=== PATIENT | female | born 1985 | race American Indian/Alaskan Native ===

== ENCOUNTER 2021-04-25 14:36 | Emergency (ER) | payer SELFPAY ==
[2021-04-25 15:25] VITALS: BP 110/69
[2021-04-25 17:07] LABS: Basophils # (Auto) 0.1 K/mm3 (0.0-0.1); Basophils % (Auto) 0.8 % (0.0-1.8); Eosinophils % (Auto) 0.3 % (0.0-4.3); Hemoglobin 10.5 gm/dl (10.1-14.3); Lymphocytes # (Auto) 0.7 K/mm3 (1.2-5.4); Lymphocytes % (Auto) 10.6 % (13.4-35.0); Mean Corpuscular HGB Conc 33 % (30-34); Mean Corpuscular Volume 78 fl (79-97); Monocytes # (Auto) 0.7 K/mm3 (0.0-0.8); Monocytes % (Auto) 10.5 % (0.0-7.3); Platelet Count 134 K/mm3 (140-440); Red Blood Count 4.08 M/mm3 (3.65-5.03); Red Cell Distribution Width 16.4 % (13.2-15.2)
[2021-04-25 17:34] LABS: Alanine Aminotransferase 10 units/L (7-56); Albumin 4.5 g/dL (3.9-5); BUN/Creatinine Ratio 16; Blood Urea Nitrogen 13 mg/dL (7-17); Calcium 9.4 mg/dL (8.4-10.2); Hemolysis Index 11
== END 2021-04-25 16:45 | disposition left against medical advice (07) ==
LOC: ED 14:36
DX: R56.9 Unspecified convulsions (principal); Z53.21 Procedure and treatment not carried out due to patient leaving prior to being seen by health care provider
CPT/HCPCS: 36415; 80053; 80320; 85025; 93005; G0480

== ENCOUNTER 2021-04-26 06:09 | Emergency (ER) | payer OTHER, SELFPAY ==
--- NOTE | 2021-04-26 06:57 | Emergency Department Report ---
ED Psych HPI - General Chief Complaint: Psych Stated Complaint: MH EVAL Time Seen by Provider: 04/26/21 06:49 Source: patient, EMS Mode of arrival: Ambulatory - History of Present Illness Initial Comments: 35-year-old female, history of bipolar disorder, schizophrenia, presents to ED for mental health evaluation. EMS reports patient reported SI. When I speak to patient she states that she is having some diffuse abdominal pain that started "a few minutes ago" after arriving in the ER. Patient does report having some suicidal ideations. She states that she is feeling suicidal because she had 2 seizures yesterday. Patient reports history of seizure disorder. States she started having seizures approximately 1 year ago. Patient states she does not take any seizure medication and has never been on any medication for seizures. Patient is also not been taking any of her psychiatric medications. MD Complaint: suicidal ideation -: Last night Associated Psychiatric Symptoms: suicidal ideation Quality: constant Improves With: none Worsens With: none Context: not taking psychiatric Associated Symptoms: other (Reports diffuse abdominal pain). denies: nausea, vomiting Treatments Prior to Arrival: none If Self Harm: admits thoughts of Details of Plan: Patient has no plan - Related Data Home Medications Medication Instructions Recorded Confirmed Last Taken Albuterol Mdi (or & Nicu Only) 2 puff IH QID PRN 04/26/21 04/26/21 Unknown [ProAir HFA Inhaler] Allergies Allergy/AdvReac Type Severity Reaction Status Date / Time No Known Allergies Allergy Verified 04/29/21 08:40 ED Review of Systems ROS: Stated complaint: MH EVAL Other details as noted in HPI Comment: All other systems reviewed and negative Constitutional: denies: fever Gastrointestinal: abdominal pain. denies: nausea, vomiting, diarrhea Psychiatric: suicidal thoughts ED Past Medical Hx - Past Medical History Previous Medical History?: Yes Hx Seizures: Yes Hx Psychiatric Treatment: Yes (bipolar scizophrenia) - Surgical History Past Surgical History?: No - Social History Smoking Status: Never Smoker Substance Use Type: None - Medications Home Medications: Home Medications Medication Instructions Recorded Confirmed Last Taken Type Albuterol Mdi (or & Nicu Only) 2 puff IH QID PRN 04/26/21 04/26/21 Unknown History [ProAir HFA Inhaler] ED Physical Exam - General Limitations: Other General appearance: alert, in no apparent distress - Head Head exam: Present: atraumatic, normocephalic - Eye Eye exam: Present: normal appearance, EOMI - ENT ENT exam: Present: mucous membranes moist - Neck Neck exam: Present: normal inspection - Respiratory Respiratory exam: Present: normal lung sounds bilaterally. Absent: respiratory distress - Cardiovascular Cardiovascular Exam: Present: regular rate, normal rhythm - GI/Abdominal GI/Abdominal exam: Present: soft. Absent: distended, tenderness - Extremities Exam Extremities exam: Present: normal inspection - Neurological Exam Neurological exam: Present: alert, oriented X3 - Psychiatric Psychiatric exam: Present: suicidal ideation - Skin Skin exam: Present: warm, dry, intact, normal color ED Course Vital Signs 04/26/21 04/26/21 04/26/21 06:50 08:16 19:40 Temperature 99.2 F 98.2 F 98.9 F Pulse Rate 80 75 80 Respiratory 18 18 18 Rate Blood Pressure Blood Pressure 111/77 106/76 118/83 [Right] O2 Sat by Pulse 98 100 100 Oximetry 04/27/21 04/27/21 04/27/21 05:20 10:29 19:38 Temperature 98.5 F 99.1 F Pulse Rate 80 74 93 H Respiratory 16 18 18 Rate Blood Pressure 114/76 Blood Pressure 97/69 101/67 [Right] O2 Sat by Pulse 100 100 100 Oximetry 04/28/21 04/28/21 04/28/21 01:20 08:03 20:15 Temperature 98.1 F 97.6 F 97.6 F Pulse Rate 77 68 90 Respiratory 19 18 18 Rate Blood Pressure Blood Pressure 116/52 114/67 105/54 [Right] O2 Sat by Pulse 100 98 100 Oximetry 04/29/21 04/29/21 04/29/21 05:40 08:38 19:38 Temperature 97.9 F 96.8 F L 98.8 F Pulse Rate 89 72 92 H Respiratory 18 18 18 Rate Blood Pressure Blood Pressure 105/54 123/73 117/70 [Right] O2 Sat by Pulse 98 96 100 Oximetry 04/30/21 04/30/21 04/30/21 01:22 04:12 05:12 Temperature 98.1 F Pulse Rate 85 Respiratory 19 16 16 Rate Blood Pressure Blood Pressure 115/68 [Right] O2 Sat by Pulse 100 Oximetry 04/30/21 04/30/21 04/30/21 09:12 18:13 20:18 Temperature 97.6 F 99 F Pulse Rate 82 79 Respiratory 20 15 18 Rate Blood Pressure Blood Pressure 110/54 104/67 [Right] O2 Sat by Pulse 100 Oximetry 05/01/21 05/01/21 05/01/21 02:34 08:30 20:18 Temperature 98.2 F 97 F L 97.8 F Pulse Rate 72 84 90 Respiratory 16 18 18 Rate Blood Pressure Blood Pressure 109/64 103/63 100/63 [Right] O2 Sat by Pulse 100 100 100 Oximetry 05/02/21 05/02/21 01:52 08:16 Temperature 97.7 F 97.9 F Pulse Rate 75 88 Respiratory 16 20 Rate Blood Pressure Blood Pressure 98/66 114/73 [Right] O2 Sat by Pulse 100 99 Oximetry ED Medical Decision Making - Lab Data Result diagrams: 04/26/21 07:17 04/26/21 07:17 - Medical Decision Making 35-year-old female presents to ED with complaint of SI. Labs unremarkable. Patient is medically clear for mental health evaluation. Will dispo per psych. Critical care attestation.: If time is entered above; I have spent that time in minutes in the direct care of this critically ill patient, excluding procedure time. ED Disposition Clinical Impression: Schizophrenia Disposition: [id number]/[id number] PSY HOSP/PSY UNIT Is pt being admited?: No Condition: Stable Referrals: PRIMARY MD PREETI [Primary Care Provider] - 3-5 Days
[2021-04-26 07:39] LABS: Basophils % (Auto) 0.9 % (0.0-1.8); Eosinophils # (Auto) 0.1 K/mm3 (0.0-0.4); Hematocrit 31.4 % (30.3-42.9); Hemoglobin 10.3 gm/dl (10.1-14.3); Lymphocytes # (Auto) 1.5 K/mm3 (1.2-5.4); Lymphocytes % (Auto) 26.6 % (13.4-35.0); Mean Corpuscular HGB Conc 33 % (30-34); Mean Corpuscular Volume 78 fl (79-97); Monocytes # (Auto) 0.8 K/mm3 (0.0-0.8); Monocytes % (Auto) 13.9 % (0.0-7.3); Platelet Count 139 K/mm3 (140-440); Red Blood Count 4.03 M/mm3 (3.65-5.03); Red Cell Distribution Width 16.2 % (13.2-15.2)
[2021-04-26 07:58] LABS: BUN/Creatinine Ratio 16; Blood Urea Nitrogen 13 mg/dL (7-17); Calcium 9.3 mg/dL (8.4-10.2); Hemolysis Index 2
[2021-04-26] MEDS ORDERED: ACETAMINOPHEN 500 MG TAB PO ONE (08:44)
--- NOTE | 2021-04-26 12:19 | Consultation ---
History of Present Illness - Reason for Consult Consult date: 04/26/21 Reason for consult: psychosis - History of Present Psychiatric Illness Per ED Note: 35-year-old female, history of bipolar disorder, schizophrenia, presents to ED for mental health evaluation. EMS reports patient reported SI. When I speak to patient she states that she is having some diffuse abdominal pain that started "a few minutes ago" after arriving in the ER. Patient does report having some suicidal ideations. She states that she is feeling suicidal because she had 2 seizures yesterday. Patient reports history of seizure disorder. States she started having seizures approximately 1 year ago. Patient states she does not take any seizure medication and has never been on any medication for seizures. Patient is also not been taking any of her psychiatric medications. The patient was seen today, she states she called 911 because she was having seizures. She also endorses SI. The patient also states she is hearing voices telling her to hurt herself. She says she has a history of schizophrenia but could not remember any medications. She denies having a plan. The patient also denies any illicit drug use, alcohol or nicotine. The patient is asking about seizure medication and states she needs to be on some meds for them. PAST PSYCHIATRIC HISTORY: Diagnoses: Depression Suicide attempts or Self-harm behavior: Yes Prior psychiatric hospitalizations: Yes Substance Abuse history: Denies Previous psychiatric medications tried: Denies Outpatient treatment: Denies PAST MEDICAL HISTORY: None reported Family Psychiatric History: None reported or documented SOCIAL HISTORY Marital Status: Single Living Arrangements: with father Employment Status: Unemployed Access to guns/weapons: States Education: high school History of Abuse: Denies Legal History: Denies MENTAL STATUS EXAMINATION General Appearance and Behavior: Age appropriate, good hygiene, fair eye contact, cooperative Cooperation: withdrawn Psychomotor Behavior: Psychomotor normal Mood: "depressed" Affect and affective range: restricted Thought Process: Speech: Normal tone and pace Thought Content Suicidal Ideation: Yes Homicidal Ideation: Denies Hallucinations: Auditory Delusions: None elicited Impulse Control: Impaired Insight and Judgment: Impaired insight and judgment Memory: Impaired Attention: Divided attention impaired Orientation: A/o x 3 Assessment and Plan (1)Schizophrenia Treatment Plan 1013 Start Prozac 10mg po daily Start Abilify 5mg po daily Trazodone 50mg po qhs Sitter: Defer to primary Medical: Per primary Disposition: Recommend acute psychiatric treatment Sitter to provide resources for outpatient psych Will follow. Thank you for this consult Case staffed with Dr. Gomez. Medications and Allergies Allergies Allergy/AdvReac Type Severity Reaction Status Date / Time No Known Allergies Allergy Unverified 04/26/21 08:44 Home Medications Medication Instructions Recorded Confirmed Last Taken Type Albuterol Mdi (or & Nicu Only) 2 puff IH QID PRN 04/26/21 04/26/21 Unknown History [ProAir HFA Inhaler] Active Meds: Active Medications Albuterol (Albuterol 8.5 Gm Mdi Inhalation) 2 puff IH QID PRN PRN Reason: Shortness Of Breath Mental Status Exam - Vital signs Last Vital Signs Temp 98.2 F 04/26/21 08:16 Pulse 75 04/26/21 08:16 Resp 18 04/26/21 08:16 BP 106/76 04/26/21 08:16 Pulse Ox 100 04/26/21 08:16 Results Result Diagrams: 04/26/21 07:17 04/26/21 07:17 Abnormal lab results 04/26/21 04/26/21 04/26/21 Range/Units 07:17 07:17 07:17 MCV 78 L (79-97) fl MCH 26 L (28-32) pg RDW 16.2 H (13.2-15.2) % Plt Count 139 L (140-440) K/mm3 [place] % (Auto) 13.9 H (0.0-7.3) % Glucose (65-100) mg/dL Salicylates < 0.3 L (2.8-20.0) mg/dL Acetaminophen 5.0 L (10.0-30.0) ug/mL 04/26/21 Range/Units 07:17 MCV (79-97) fl MCH (28-32) pg RDW (13.2-15.2) % Plt Count (140-440) K/mm3 [place] % (Auto) (0.0-7.3) % Glucose 101 H (65-100) mg/dL Salicylates (2.8-20.0) mg/dL Acetaminophen (10.0-30.0) ug/mL All other labs normal.
[2021-04-26] MEDS ORDERED: LORazepam 1 MG TAB PO ONE (12:35)
[2021-04-26 12:38] LABS: Bilirubin,Urine NEG (Negative); Blood,Urine SM (Negative); Color,Urine Yellow (Yellow); Mucus,Urine FEW /HPF; Protein,Urine <15 mg/dL mg/dL (Negative); Urobilinogen,Urine < 2.0 mg/dL (<2.0)
[2021-04-26 12:45] LABS: Amphetamine Screen,Urine Negative; Benzodiazepines Screen,Urine Negative; Cannabinoid Screen,Urine Negative; Cocaine Screen,Urine Negative; Methadone Screen,Urine Negative; Opiate Screen,Urine Negative
[2021-04-26] MEDS: FLUoxetine 10 MG TAB PO SCH (13:04)
[2021-04-26] MEDS: ARIPiprazole 5 MG TAB PO SCH (13:04)
[2021-04-26] MEDS ORDERED: FAMOTIDINE 20 MG TAB PO ONE (21:31)
[2021-04-26] MEDS: traZODone 50 MG TAB PO SCH (21:49)
--- NOTE | 2021-04-27 10:36 | Progress Note ---
Subjective - Reason for Consult Consult date: 04/27/21 Reason for consult: psychosis - Chief Complaint Chief complaint: The patient was seen today. She says she is "not good." The patient endorses SI with a plan to use a knife. She says she is seeing ghosts. SOCIAL HISTORY Marital Status: Single Living Arrangements: with father Employment Status: Unemployed Access to guns/weapons: States Education: high school History of Abuse: Denies Legal History: Denies MENTAL STATUS EXAMINATION General Appearance and Behavior: Age appropriate, good hygiene, fair eye contact, cooperative Cooperation: withdrawn Psychomotor Behavior: Psychomotor normal Mood: "depressed" Affect and affective range: restricted Thought Process: Speech: Normal tone and pace Thought Content Suicidal Ideation: Yes Homicidal Ideation: Denies Hallucinations: Auditory Delusions: None elicited Impulse Control: Impaired Insight and Judgment: Impaired insight and judgment Memory: Impaired Attention: Divided attention impaired Orientation: A/o x 3 Assessment and Plan (1)Schizophrenia Treatment Plan 1013 Increase Prozac 20mg po daily Increase Abilify 10mg po daily Trazodone 50mg po qhs Sitter: Defer to primary Medical: Per primary Disposition: Recommend acute psychiatric treatment Sitter to provide resources for outpatient psych Will follow. Thank you for this consult Case staffed with Dr. Gomez. Mental Status Exam - Vital signs Last Vital Signs Temp 98.5 F 04/27/21 05:20 Pulse 74 04/27/21 10:29 Resp 18 04/27/21 10:29 BP 101/67 04/27/21 10:29 Pulse Ox 100 04/27/21 10:29
[2021-04-27] MEDS: ARIPiprazole 5 MG TAB PO SCH (11:55)
[2021-04-27] MEDS: FLUoxetine 10 MG TAB PO SCH (11:56)
--- NOTE | 2021-04-27 12:13 | Event Note ---
Date: 04/27/21 Patient is calm and cooperative. She is continue to endorse some suicidal thoughts. Patient was seen by our mental health assessment team and is continue to be a candidate for 1013. Please see their note below. Psychiatry Progress Note Patient Name: GABRIELA LANGFORD Date of : 85 Patient Status: Emergency Emergency Provider: AHMET CALI Date: 04/27/21 10:35 Initialization Date: 04/27/21 10:35 Subjective - Reason for Consult Consult date: 04/27/21 Reason for consult: psychosis - Chief Complaint Chief complaint: The patient was seen today. She says she is "not good." The patient endorses SI with a plan to use a knife. She says she is seeing ghosts. SOCIAL HISTORY Marital Status: Single Living Arrangements: with father Employment Status: Unemployed Access to guns/weapons: States Education: high school History of Abuse: Denies Legal History: Denies MENTAL STATUS EXAMINATION General Appearance and Behavior: Age appropriate, good hygiene, fair eye contact, cooperative Cooperation: withdrawn Psychomotor Behavior: Psychomotor normal Mood: "depressed" Affect and affective range: restricted Thought Process: Speech: Normal tone and pace Thought Content Suicidal Ideation: Yes Homicidal Ideation: Denies Hallucinations: Auditory Delusions: None elicited Impulse Control: Impaired Insight and Judgment: Impaired insight and judgment Memory: Impaired Attention: Divided attention impaired Orientation: A/o x 3 Assessment and Plan (1)Schizophrenia Treatment Plan 1013 Increase Prozac 20mg po daily Increase Abilify 10mg po daily Trazodone 50mg po qhs Sitter: Defer to primary Medical: Per primary Disposition: Recommend acute psychiatric treatment Sitter to provide resources for outpatient psych Will follow. Thank you for this consult Case staffed with Dr. Gomez.
[2021-04-27] MEDS ORDERED: DEXTROSE 50% IN WATER (25GM) 50 ML SYRINGE IV ONE (12:14)
[2021-04-27] MEDS ORDERED: ONDANSETRON 4 MG ODT TAB PO ONE (20:32)
[2021-04-27] MEDS: traZODone 50 MG TAB PO SCH (22:01)
--- NOTE | 2021-04-28 10:21 | Progress Note ---
Subjective - Reason for Consult Consult date: 04/28/21 Reason for consult: MHE Requesting physician: SETH ROMERO - Chief Complaint Chief complaint: The patient was seen today. She says she is "not good." The patient endorses SI with a plan to use a knife. She says she is seeing ghosts. SOCIAL HISTORY Marital Status: Single Living Arrangements: with father Employment Status: Unemployed Access to guns/weapons: States Education: high school History of Abuse: Denies Legal History: Denies MENTAL STATUS EXAMINATION General Appearance and Behavior: Age appropriate, good hygiene, fair eye contact, cooperative Cooperation: withdrawn Psychomotor Behavior: Psychomotor normal Mood: "depressed" Affect and affective range: restricted Thought Process: Speech: Normal tone and pace Thought Content Suicidal Ideation: Yes Homicidal Ideation: Denies Hallucinations: Auditory Delusions: None elicited Impulse Control: Impaired Insight and Judgment: Impaired insight and judgment Memory: Impaired Attention: Divided attention impaired Orientation: A/o x 3 Assessment and Plan (1)Schizophrenia Treatment Plan 1013 Increase Prozac 20mg po daily Increase Abilify 10mg po daily Trazodone 50mg po qhs Sitter: Defer to primary Medical: Per primary Disposition: Recommend acute psychiatric treatment Sitter to provide resources for outpatient psych Will follow. Thank you for this consult Case staffed with Dr. Gomez. Mental Status Exam - Vital signs Last Vital Signs Temp 97.6 F 04/28/21 08:03 Pulse 68 04/28/21 08:03 Resp 18 04/28/21 08:03 BP 114/67 04/28/21 08:03 Pulse Ox 98 04/28/21 08:03
--- NOTE | 2021-04-28 10:58 | Event Note ---
Date: 04/28/21 S: Patient has no complaints. O: Vital signs stable. Patient calm and cooperative. A: Schizophrenia P: 1013; patient awaiting inpatient psychiatric placement
[2021-04-28] MEDS: FLUoxetine 20 MG CAP PO SCH (11:25)
[2021-04-28] MEDS: ARIPiprazole 10 MG TAB PO SCH (11:25)
[2021-04-28] MEDS ORDERED: DOCUSATE SODIUM 100 MG CAP PO PRN (21:35)
[2021-04-28] MEDS: traZODone 50 MG TAB PO SCH (21:49)
[2021-04-29] MEDS: ARIPiprazole 10 MG TAB PO SCH ×2 (10:03→10:07)
[2021-04-29] MEDS: FLUoxetine 20 MG CAP PO SCH ×2 (10:03→10:07)
--- NOTE | 2021-04-29 10:55 | Event Note ---
Date: 04/29/21 35-year-old female who presented with suicidal ideation with a plan. Patient was medically cleared and seen by mental health watch dial stoner/psychiatry who recommends further inpatient treatment. Vital signs reviewed and are stable. The patient refused her meds this morning. She is resting comfortably in the room. Awaiting psych facility placement.
[2021-04-29] MEDS: ALBUTEROL 8.5 GM MDI INHALATION IH PRN (13:06)
[2021-04-29] MEDS: traZODone 50 MG TAB PO SCH (22:19)
[2021-04-30] MEDS ORDERED: ONDANSETRON 4 MG/2 ML INJ ONE (03:34)
[2021-04-30] MEDS ORDERED: ACETAMINOPHEN 325 MG TAB PO ONE (04:08)
--- NOTE | 2021-04-30 09:34 | Progress Note ---
Subjective - Reason for Consult Consult date: 04/30/21 Reason for consult: MHE Requesting physician: AHMET CALI - Chief Complaint Chief complaint: Psych Progress Patient seen this AM, appears sad and withdrawn, endorses desire to go home, states she only gets angry because of people around her. Asked pt if she is still angry and she admits to been angry because of being held in hospital. Per documentation, pt still having intermittent episode of outburst behavior over weekend, still recommend inpatient Marital Status: Single Living Arrangements: with father Employment Status: Unemployed Access to guns/weapons: States Education: high school History of Abuse: Denies Legal History: Denies MENTAL STATUS EXAMINATION General Appearance and Behavior: Age appropriate, good hygiene, fair eye c ontact, cooperative Cooperation: withdrawn Psychomotor Behavior: Psychomotor normal Mood: "depressed" Affect and affective range: restricted Thought Process: Speech: Normal tone and pace Thought Content Suicidal Ideation: Yes Homicidal Ideation: Denies Hallucinations: Auditory Delusions: None elicited Impulse Control: Impaired Insight and Judgment: Impaired insight and judgment Memory: Impaired Attention: Divided attention impaired Orientation: A/o x 3 Assessment and Plan (1)Schizophrenia Treatment Plan 1013 Increase Prozac 20mg po daily Increase Abilify 10mg po daily Trazodone 50mg po qhs Sitter: Defer to primary Medical: Per primary Disposition: Recommend acute psychiatric treatment Sitter to provide resources for outpatient psych Will follow. Thank you for this consult Case staffed with Dr. Gomez. Mental Status Exam - Vital signs Last Vital Signs Temp 97.6 F 04/30/21 09:12 Pulse 82 04/30/21 09:12 Resp 20 04/30/21 09:12 BP 110/54 04/30/21 09:12 Pulse Ox 100 04/30/21 01:22
--- NOTE | 2021-04-30 10:30 | Event Note ---
Date: 04/30/21 35-year-old female who presented with suicidal ideation with a plan. Patient was medically cleared and seen by mental health route delivery manager/psychiatry who recommends further inpatient treatment. Vital signs reviewed and are stable. The patient is resting comfortably in the room. The patient's psychiatric medications have been adjusted by psychiatry. Awaiting psych facility placement.
[2021-04-30] MEDS: ARIPiprazole 10 MG TAB PO SCH (11:29)
[2021-04-30] MEDS: FLUoxetine 20 MG CAP PO SCH (11:30)
[2021-04-30] MEDS ORDERED: ACETAMINOPHEN 500 MG TAB PO ONE (16:59)
[2021-04-30] MEDS ORDERED: IBUPROFEN 400 MG TAB PO ONE (16:59)
[2021-04-30] MEDS: traZODone 50 MG TAB PO SCH (21:57)
[2021-05-01] MEDS: ALBUTEROL 8.5 GM MDI INHALATION IH PRN (04:22)
[2021-05-01] MEDS: ARIPiprazole 10 MG TAB PO SCH (10:03)
[2021-05-01] MEDS: FLUoxetine 20 MG CAP PO SCH (10:03)
[2021-05-01] MEDS ORDERED: diphenhydrAMINE 25 MG CAP PO PRN (10:52)
[2021-05-01] MEDS ORDERED: IBUPROFEN 400 MG TAB PO PRN (10:52)
[2021-05-01] MEDS ORDERED: LORazepam 2 MG/ML VIAL IM PRN (10:52)
[2021-05-01] MEDS ORDERED: ACETAMINOPHEN 325 MG TAB PO PRN (10:52)
--- NOTE | 2021-05-01 10:54 | Event Note ---
Date: 05/01/21 The patient was evaluated in the emergency department for symptoms described in the history of present illness. He/she was evaluated in the context of the global COVID-19 pandemic, which necessitated consideration that the patient might be at risk for infection with the virus that causes COVID-19. Institutional protocols and algorithms that pertain to the evaluation of patients at risk for COVID-19 are in a state of rapid change based on information released by regulatory bodies including the CDC and federal and state organizations. These policies and algorithms were followed during the patient's care in the emergency department. Please note that these policies, procedures and recommendations changed on a rapid basis. Patient resting comfortably in stretcher, and in no acute distress. medically cleared on initial ER evaluation. Laboratory studies, initial ER documentation reviewed and appreciated, nursing documentation reviewed and appreciated, awaiting psychiatric recommendations at this time. Nursing team endorses no acute events this morning. Patient did complain of mild painful dysmenorrhea, as needed analgesia has been ordered. psychiatric recommendations are reviewed and appreciated. Patient does not appear to have an immediate medical contraindication at this time that would preclude psychiatric evaluation, consultation, placement and disposition. Vital Signs 04/26/21 04/26/21 04/26/21 06:50 08:16 19:40 Temperature 99.2 F 98.2 F 98.9 F Pulse Rate 80 75 80 Respiratory 18 18 18 Rate Blood Pressure Blood Pressure 111/77 106/76 118/83 [Right] O2 Sat by Pulse 98 100 100 Oximetry 04/27/21 04/27/21 04/27/21 05:20 10:29 19:38 Temperature 98.5 F 99.1 F Pulse Rate 80 74 93 H Respiratory 16 18 18 Rate Blood Pressure 114/76 Blood Pressure 97/69 101/67 [Right] O2 Sat by Pulse 100 100 100 Oximetry 04/28/21 04/28/21 04/28/21 01:20 08:03 20:15 Temperature 98.1 F 97.6 F 97.6 F Pulse Rate 77 68 90 Respiratory 19 18 18 Rate Blood Pressure Blood Pressure 116/52 114/67 105/54 [Right] O2 Sat by Pulse 100 98 100 Oximetry 04/29/21 04/29/21 04/29/21 05:40 08:38 19:38 Temperature 97.9 F 96.8 F L 98.8 F Pulse Rate 89 72 92 H Respiratory 18 18 18 Rate Blood Pressure Blood Pressure 105/54 123/73 117/70 [Right] O2 Sat by Pulse 98 96 100 Oximetry 04/30/21 04/30/21 04/30/21 01:22 04:12 05:12 Temperature 98.1 F Pulse Rate 85 Respiratory 19 16 16 Rate Blood Pressure Blood Pressure 115/68 [Right] O2 Sat by Pulse 100 Oximetry 04/30/21 04/30/21 04/30/21 09:12 18:13 20:18 Temperature 97.6 F 99 F Pulse Rate 82 79 Respiratory 20 15 18 Rate Blood Pressure Blood Pressure 110/54 104/67 [Right] O2 Sat by Pulse 100 Oximetry 05/01/21 05/01/21 02:34 08:30 Temperature 98.2 F 97 F L Pulse Rate 72 84 Respiratory 16 18 Rate Blood Pressure Blood Pressure 109/64 103/63 [Right] O2 Sat by Pulse 100 100 Oximetry Lab Results 04/26/21 04/26/21 04/26/21 Range/Units 07:17 07:17 07:17 WBC 5.7 (4.5-11.0) K/mm3 RBC 4.03 (3.65-5.03) M/mm3 Hgb 10.3 (10.1-14.3) gm/dl Hct 31.4 (30.3-42.9) % MCV 78 L (79-97) fl MCH 26 L (28-32) pg MCHC 33 (30-34) % RDW 16.2 H (13.2-15.2) % Plt Count 139 L (140-440) K/mm3 Lymph % (Auto) 26.6 (13.4-35.0) % [place] % (Auto) 13.9 H (0.0-7.3) % Eos % (Auto) 1.0 (0.0-4.3) % Baso % (Auto) 0.9 (0.0-1.8) % Lymph # (Auto) 1.5 (1.2-5.4) K/mm3 [place] # (Auto) 0.8 (0.0-0.8) K/mm3 Eos # (Auto) 0.1 (0.0-0.4) K/mm3 Baso # (Auto) 0.0 (0.0-0.1) K/mm3 Seg Neutrophils % 57.6 (40.0-70.0) % Seg Neutrophils # 3.3 (1.8-7.7) K/mm3 Sodium (137-145) mmol/L Potassium (3.6-5.0) mmol/L Chloride (98-107) mmol/L Carbon Dioxide (22-30) mmol/L Anion Gap mmol/L BUN (7-17) mg/dL Creatinine (0.6-1.2) mg/dL Estimated GFR ml/min BUN/Creatinine Ratio % Glucose (65-100) mg/dL Calcium (8.4-10.2) mg/dL Lipase (13-60) units/L HCG, Qual (Negative) Urine Color (Yellow) Urine Turbidity (Clear) Urine pH (5.0-7.0) Ur Specific [place] (1.003-1.030) Urine Protein (Negative) mg/dL Urine Glucose (UA) (Negative) mg/dL Urine Ketones (Negative) mg/dL Urine Blood (Negative) Urine Nitrite (Negative) Urine Bilirubin (Negative) Urine Urobilinogen (<2.0) mg/dL Ur Leukocyte Esterase (Negative) Urine WBC (Auto) (0.0-6.0) /HPF Urine RBC (Auto) (0.0-6.0) /HPF U Epithel Cells (Auto) (0-13.0) /HPF Urine Mucus /HPF Salicylates < 0.3 L (2.8-20.0) mg/dL Urine Opiates Screen Urine Methadone Screen Acetaminophen 5.0 L (10.0-30.0) ug/mL Ur Barbiturates Screen Ur Phencyclidine Scrn Ur Amphetamines Screen U Benzodiazepines Scrn Urine Cocaine Screen U Marijuana (THC) Screen Drugs of Abuse Note Plasma/Serum Alcohol (0-0.07) % Coronavirus (PCR) (Negative) 04/26/21 04/26/21 04/26/21 Range/Units 07:17 07:17 07:17 WBC (4.5-11.0) K/mm3 RBC (3.65-5.03) M/mm3 Hgb (10.1-14.3) gm/dl Hct (30.3-42.9) % MCV (79-97) fl MCH (28-32) pg MCHC (30-34) % RDW (13.2-15.2) % Plt Count (140-440) K/mm3 Lymph % (Auto) (13.4-35.0) % [place] % (Auto) (0.0-7.3) % Eos % (Auto) (0.0-4.3) % Baso % (Auto) (0.0-1.8) % Lymph # (Auto) (1.2-5.4) K/mm3 [place] # (Auto) (0.0-0.8) K/mm3 Eos # (Auto) (0.0-0.4) K/mm3 Baso # (Auto) (0.0-0.1) K/mm3 Seg Neutrophils % (40.0-70.0) % Seg Neutrophils # (1.8-7.7) K/mm3 Sodium 138 (137-145) mmol/L Potassium 4.1 (3.6-5.0) mmol/L Chloride 105.0 (98-107) mmol/L Carbon Dioxide 25 (22-30) mmol/L Anion Gap 12 mmol/L BUN 13 (7-17) mg/dL Creatinine 0.8 (0.6-1.2) mg/dL Estimated GFR > 60 ml/min BUN/Creatinine Ratio 16 % Glucose 101 H (65-100) mg/dL Calcium 9.3 (8.4-10.2) mg/dL Lipase 30 (13-60) units/L HCG, Qual Negative (Negative) Urine Color (Yellow) Urine Turbidity (Clear) Urine pH (5.0-7.0) Ur Specific [place] (1.003-1.030) Urine Protein (Negative) mg/dL Urine Glucose (UA) (Negative) mg/dL Urine Ketones (Negative) mg/dL Urine Blood (Negative) Urine Nitrite (Negative) Urine Bilirubin (Negative) Urine Urobilinogen (<2.0) mg/dL Ur Leukocyte Esterase (Negative) Urine WBC (Auto) (0.0-6.0) /HPF Urine RBC (Auto) (0.0-6.0) /HPF U Epithel Cells (Auto) (0-13.0) /HPF Urine Mucus /HPF Salicylates (2.8-20.0) mg/dL Urine Opiates Screen Urine Methadone Screen Acetaminophen (10.0-30.0) ug/mL Ur Barbiturates Screen Ur Phencyclidine Scrn Ur Amphetamines Screen U Benzodiazepines Scrn Urine Cocaine Screen U Marijuana (THC) Screen Drugs of Abuse Note Plasma/Serum Alcohol < 0.01 (0-0.07) % Coronavirus (PCR) (Negative) 04/26/21 04/26/21 04/26/21 Range/Units Unknown Unknown Unknown WBC (4.5-11.0) K/mm3 RBC (3.65-5.03) M/mm3 Hgb (10.1-14.3) gm/dl Hct (30.3-42.9) % MCV (79-97) fl MCH (28-32) pg MCHC (30-34) % RDW (13.2-15.2) % Plt Count (140-440) K/mm3 Lymph % (Auto) (13.4-35.0) % [place] % (Auto) (0.0-7.3) % Eos % (Auto) (0.0-4.3) % Baso % (Auto) (0.0-1.8) % Lymph # (Auto) (1.2-5.4) K/mm3 [place] # (Auto) (0.0-0.8) K/mm3 Eos # (Auto) (0.0-0.4) K/mm3 Baso # (Auto) (0.0-0.1) K/mm3 Seg Neutrophils % (40.0-70.0) % Seg Neutrophils # (1.8-7.7) K/mm3 Sodium (137-145) mmol/L Potassium (3.6-5.0) mmol/L Chloride (98-107) mmol/L Carbon Dioxide (22-30) mmol/L Anion Gap mmol/L BUN (7-17) mg/dL Creatinine (0.6-1.2) mg/dL Estimated GFR ml/min BUN/Creatinine Ratio % Glucose (65-100) mg/dL Calcium (8.4-10.2) mg/dL Lipase (13-60) units/L HCG, Qual (Negative) Urine Color Yellow (Yellow) Urine Turbidity Clear (Clear) Urine pH 7.0 (5.0-7.0) Ur Specific [place] 1.014 (1.003-1.030) Urine Protein <15 mg/dl (Negative) mg/dL Urine Glucose (UA) Neg (Negative) mg/dL Urine Ketones Neg (Negative) mg/dL Urine Blood Sm (Negative) Urine Nitrite Neg (Negative) Urine Bilirubin Neg (Negative) Urine Urobilinogen < 2.0 (<2.0) mg/dL Ur Leukocyte Esterase Sm (Negative) Urine WBC (Auto) 2.0 (0.0-6.0) /HPF Urine RBC (Auto) 1.0 (0.0-6.0) /HPF U Epithel Cells (Auto) 6.0 (0-13.0) /HPF Urine Mucus Few /HPF Salicylates (2.8-20.0) mg/dL Urine Opiates Screen Negative Urine Methadone Screen Negative Acetaminophen (10.0-30.0) ug/mL Ur Barbiturates Screen Negative Ur Phencyclidine Scrn Negative Ur Amphetamines Screen Negative U Benzodiazepines Scrn Negative Urine Cocaine Screen Negative U Marijuana (THC) Screen Negative Drugs of Abuse Note Disclamer Plasma/Serum Alcohol (0-0.07) % Coronavirus (PCR) Negative (Negative)
[2021-05-01] MEDS: traZODone 50 MG TAB PO SCH (22:21)
[2021-05-02 08:17] VITALS: BP 114/73
[2021-05-02] MEDS: ARIPiprazole 10 MG TAB PO SCH (09:41)
[2021-05-02] MEDS: FLUoxetine 20 MG CAP PO SCH (09:41)
--- NOTE | 2021-05-02 11:20 | Event Note ---
Date: 05/02/21 Nursing team reports no events overnight. Vital signs are unremarkable, psychiatric recommendations reviewed and appreciated. This patient remains medically suitable for psychiatric transfer and placement at this time. Apparently she is going to be placed at [facility]. Patient resting comfortably in stretcher, and in no acute distress. Vital Signs 04/26/21 04/26/21 04/26/21 06:50 08:16 19:40 Temperature 99.2 F 98.2 F 98.9 F Pulse Rate 80 75 80 Respiratory 18 18 18 Rate Blood Pressure Blood Pressure 111/77 106/76 118/83 [Right] O2 Sat by Pulse 98 100 100 Oximetry 04/27/21 04/27/21 04/27/21 05:20 10:29 19:38 Temperature 98.5 F 99.1 F Pulse Rate 80 74 93 H Respiratory 16 18 18 Rate Blood Pressure 114/76 Blood Pressure 97/69 101/67 [Right] O2 Sat by Pulse 100 100 100 Oximetry 04/28/21 04/28/21 04/28/21 01:20 08:03 20:15 Temperature 98.1 F 97.6 F 97.6 F Pulse Rate 77 68 90 Respiratory 19 18 18 Rate Blood Pressure Blood Pressure 116/52 114/67 105/54 [Right] O2 Sat by Pulse 100 98 100 Oximetry 04/29/21 04/29/21 04/29/21 05:40 08:38 19:38 Temperature 97.9 F 96.8 F L 98.8 F Pulse Rate 89 72 92 H Respiratory 18 18 18 Rate Blood Pressure Blood Pressure 105/54 123/73 117/70 [Right] O2 Sat by Pulse 98 96 100 Oximetry 04/30/21 04/30/21 04/30/21 01:22 04:12 05:12 Temperature 98.1 F Pulse Rate 85 Respiratory 19 16 16 Rate Blood Pressure Blood Pressure 115/68 [Right] O2 Sat by Pulse 100 Oximetry 04/30/21 04/30/21 04/30/21 09:12 18:13 20:18 Temperature 97.6 F 99 F Pulse Rate 82 79 Respiratory 20 15 18 Rate Blood Pressure Blood Pressure 110/54 104/67 [Right] O2 Sat by Pulse 100 Oximetry 05/01/21 05/01/21 05/01/21 02:34 08:30 20:18 Temperature 98.2 F 97 F L 97.8 F Pulse Rate 72 84 90 Respiratory 16 18 18 Rate Blood Pressure Blood Pressure 109/64 103/63 100/63 [Right] O2 Sat by Pulse 100 100 100 Oximetry 05/02/21 05/02/21 01:52 08:16 Temperature 97.7 F 97.9 F Pulse Rate 75 88 Respiratory 16 20 Rate Blood Pressure Blood Pressure 98/66 114/73 [Right] O2 Sat by Pulse 100 99 Oximetry Lab Results 04/26/21 04/26/21 04/26/21 Range/Units 07:17 07:17 07:17 WBC 5.7 (4.5-11.0) K/mm3 RBC 4.03 (3.65-5.03) M/mm3 Hgb 10.3 (10.1-14.3) gm/dl Hct 31.4 (30.3-42.9) % MCV 78 L (79-97) fl MCH 26 L (28-32) pg MCHC 33 (30-34) % RDW 16.2 H (13.2-15.2) % Plt Count 139 L (140-440) K/mm3 Lymph % (Auto) 26.6 (13.4-35.0) % [place] % (Auto) 13.9 H (0.0-7.3) % Eos % (Auto) 1.0 (0.0-4.3) % Baso % (Auto) 0.9 (0.0-1.8) % Lymph # (Auto) 1.5 (1.2-5.4) K/mm3 [place] # (Auto) 0.8 (0.0-0.8) K/mm3 Eos # (Auto) 0.1 (0.0-0.4) K/mm3 Baso # (Auto) 0.0 (0.0-0.1) K/mm3 Seg Neutrophils % 57.6 (40.0-70.0) % Seg Neutrophils # 3.3 (1.8-7.7) K/mm3 Sodium (137-145) mmol/L Potassium (3.6-5.0) mmol/L Chloride (98-107) mmol/L Carbon Dioxide (22-30) mmol/L Anion Gap mmol/L BUN (7-17) mg/dL Creatinine (0.6-1.2) mg/dL Estimated GFR ml/min BUN/Creatinine Ratio % Glucose (65-100) mg/dL Calcium (8.4-10.2) mg/dL Lipase (13-60) units/L HCG, Qual (Negative) Urine Color (Yellow) Urine Turbidity (Clear) Urine pH (5.0-7.0) Ur Specific [place] (1.003-1.030) Urine Protein (Negative) mg/dL Urine Glucose (UA) (Negative) mg/dL Urine Ketones (Negative) mg/dL Urine Blood (Negative) Urine Nitrite (Negative) Urine Bilirubin (Negative) Urine Urobilinogen (<2.0) mg/dL Ur Leukocyte Esterase (Negative) Urine WBC (Auto) (0.0-6.0) /HPF Urine RBC (Auto) (0.0-6.0) /HPF U Epithel Cells (Auto) (0-13.0) /HPF Urine Mucus /HPF Salicylates < 0.3 L (2.8-20.0) mg/dL Urine Opiates Screen Urine Methadone Screen Acetaminophen 5.0 L (10.0-30.0) ug/mL Ur Barbiturates Screen Ur Phencyclidine Scrn Ur Amphetamines Screen U Benzodiazepines Scrn Urine Cocaine Screen U Marijuana (THC) Screen Drugs of Abuse Note Plasma/Serum Alcohol (0-0.07) % Coronavirus (PCR) (Negative) 04/26/21 04/26/21 04/26/21 Range/Units 07:17 07:17 07:17 WBC (4.5-11.0) K/mm3 RBC (3.65-5.03) M/mm3 Hgb (10.1-14.3) gm/dl Hct (30.3-42.9) % MCV (79-97) fl MCH (28-32) pg MCHC (30-34) % RDW (13.2-15.2) % Plt Count (140-440) K/mm3 Lymph % (Auto) (13.4-35.0) % [place] % (Auto) (0.0-7.3) % Eos % (Auto) (0.0-4.3) % Baso % (Auto) (0.0-1.8) % Lymph # (Auto) (1.2-5.4) K/mm3 [place] # (Auto) (0.0-0.8) K/mm3 Eos # (Auto) (0.0-0.4) K/mm3 Baso # (Auto) (0.0-0.1) K/mm3 Seg Neutrophils % (40.0-70.0) % Seg Neutrophils # (1.8-7.7) K/mm3 Sodium 138 (137-145) mmol/L Potassium 4.1 (3.6-5.0) mmol/L Chloride 105.0 (98-107) mmol/L Carbon Dioxide 25 (22-30) mmol/L Anion Gap 12 mmol/L BUN 13 (7-17) mg/dL Creatinine 0.8 (0.6-1.2) mg/dL Estimated GFR > 60 ml/min BUN/Creatinine Ratio 16 % Glucose 101 H (65-100) mg/dL Calcium 9.3 (8.4-10.2) mg/dL Lipase 30 (13-60) units/L HCG, Qual Negative (Negative) Urine Color (Yellow) Urine Turbidity (Clear) Urine pH (5.0-7.0) Ur Specific [place] (1.003-1.030) Urine Protein (Negative) mg/dL Urine Glucose (UA) (Negative) mg/dL Urine Ketones (Negative) mg/dL Urine Blood (Negative) Urine Nitrite (Negative) Urine Bilirubin (Negative) Urine Urobilinogen (<2.0) mg/dL Ur Leukocyte Esterase (Negative) Urine WBC (Auto) (0.0-6.0) /HPF Urine RBC (Auto) (0.0-6.0) /HPF U Epithel Cells (Auto) (0-13.0) /HPF Urine Mucus /HPF Salicylates (2.8-20.0) mg/dL Urine Opiates Screen Urine Methadone Screen Acetaminophen (10.0-30.0) ug/mL Ur Barbiturates Screen Ur Phencyclidine Scrn Ur Amphetamines Screen U Benzodiazepines Scrn Urine Cocaine Screen U Marijuana (THC) Screen Drugs of Abuse Note Plasma/Serum Alcohol < 0.01 (0-0.07) % Coronavirus (PCR) (Negative) 04/26/21 04/26/21 04/26/21 Range/Units Unknown Unknown Unknown WBC (4.5-11.0) K/mm3 RBC (3.65-5.03) M/mm3 Hgb (10.1-14.3) gm/dl Hct (30.3-42.9) % MCV (79-97) fl MCH (28-32) pg MCHC (30-34) % RDW (13.2-15.2) % Plt Count (140-440) K/mm3 Lymph % (Auto) (13.4-35.0) % [place] % (Auto) (0.0-7.3) % Eos % (Auto) (0.0-4.3) % Baso % (Auto) (0.0-1.8) % Lymph # (Auto) (1.2-5.4) K/mm3 [place] # (Auto) (0.0-0.8) K/mm3 Eos # (Auto) (0.0-0.4) K/mm3 Baso # (Auto) (0.0-0.1) K/mm3 Seg Neutrophils % (40.0-70.0) % Seg Neutrophils # (1.8-7.7) K/mm3 Sodium (137-145) mmol/L Potassium (3.6-5.0) mmol/L Chloride (98-107) mmol/L Carbon Dioxide (22-30) mmol/L Anion Gap mmol/L BUN (7-17) mg/dL Creatinine (0.6-1.2) mg/dL Estimated GFR ml/min BUN/Creatinine Ratio % Glucose (65-100) mg/dL Calcium (8.4-10.2) mg/dL Lipase (13-60) units/L HCG, Qual (Negative) Urine Color Yellow (Yellow) Urine Turbidity Clear (Clear) Urine pH 7.0 (5.0-7.0) Ur Specific [place] 1.014 (1.003-1.030) Urine Protein <15 mg/dl (Negative) mg/dL Urine Glucose (UA) Neg (Negative) mg/dL Urine Ketones Neg (Negative) mg/dL Urine Blood Sm (Negative) Urine Nitrite Neg (Negative) Urine Bilirubin Neg (Negative) Urine Urobilinogen < 2.0 (<2.0) mg/dL Ur Leukocyte Esterase Sm (Negative) Urine WBC (Auto) 2.0 (0.0-6.0) /HPF Urine RBC (Auto) 1.0 (0.0-6.0) /HPF U Epithel Cells (Auto) 6.0 (0-13.0) /HPF Urine Mucus Few /HPF Salicylates (2.8-20.0) mg/dL Urine Opiates Screen Negative Urine Methadone Screen Negative Acetaminophen (10.0-30.0) ug/mL Ur Barbiturates Screen Negative Ur Phencyclidine Scrn Negative Ur Amphetamines Screen Negative U Benzodiazepines Scrn Negative Urine Cocaine Screen Negative U Marijuana (THC) Screen Negative Drugs of Abuse Note Disclamer Plasma/Serum Alcohol (0-0.07) % Coronavirus (PCR) Negative (Negative)
== END 2021-05-02 11:58 ==
LOC: ED 06:09 → EEVIPCON 06:09 → ED 05-02 11:58
DX: F20.9 Schizophrenia, unspecified (principal); Z20.822 Contact with and (suspected) exposure to COVID-19; I10 Essential (primary) hypertension; Z86.69 Personal history of other diseases of the nervous system and sense organs; Z79.899 Other long term (current) drug therapy
CPT/HCPCS: 36415; 80048; 80307; 81001; 83690; 84703; 85025; 99285; U0003; 80320; G0480; J2405; Q0162

== ENCOUNTER 2021-05-28 17:36 | Emergency (ER) | payer OTHER, SELFPAY ==
[2021-05-28] MEDS ORDERED: ALUM-MAG HYDROXIDE-SIMETHICONE 200-200-20MG/5ML ORAL LIQD 30 ML PO PRN (18:05)
[2021-05-28] MEDS ORDERED: MAGNESIUM HYDROXIDE (MOM) ORAL LIQD UDC PO PRN (18:05)
--- NOTE | 2021-05-28 18:18 | Emergency Department Report ---
ED Psych HPI - General Stated Complaint: SUICIDAL IDEATIONS Time Seen by Provider: 05/28/21 18:00 Source: patient - History of Present Illness Initial Comments: Chief complaint: "I am having hallucinations." HPI: This is a 35-year-old female who presents via EMS with history of bipolar disorder and schizophrenia. She states that "I am having hallucinations." I asked what the voices are telling her. She states the voices are telling her to "kill myself". She denies plan to harm herself. She denies any physical complaints. She stated that her friend called 911. She wants to be placed in a alf. She cannot recall the name of her psychiatric medications. She has not taken her psychiatric medications in quite some time. She was last evaluated in this emergency department for mental health disorder last month. MD Complaint: suicidal ideation, other (Hallucinations) -: days(s) (Several days) Associated Psychiatric Symptoms: suicidal ideation, auditory hallucinations History of same: Yes Quality: constant Improves With: none Worsens With: none Context: not taking psychiatric Associated Symptoms: denies other symptoms Treatments Prior to Arrival: none - Related Data Home Medications Medication Instructions Recorded Confirmed Last Taken Albuterol Mdi (or & Nicu Only) 2 puff IH QID PRN 04/26/21 05/29/21 Unknown [ProAir HFA Inhaler] Allergies Allergy/AdvReac Type Severity Reaction Status Date / Time No Known Allergies Allergy Verified 04/29/21 08:40 ED Review of Systems ROS: Stated complaint: SUICIDAL IDEATIONS Other details as noted in HPI Comment: All other systems reviewed and negative Constitutional: denies: fever, malaise Respiratory: denies: cough Cardiovascular: denies: chest pain Gastrointestinal: denies: abdominal pain, nausea, vomiting Psychiatric: auditory hallucinations, suicidal thoughts ED Past Medical Hx - Past Medical History Previous Medical History?: Yes Hx Seizures: Yes Hx Psychiatric Treatment: Yes (bipolar scizophrenia) - Surgical History Past Surgical History?: Yes Additional Surgical History: "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 - Social History Smoking Status: Never Smoker Substance Use Type: None - Medications Home Medications: Home Medications Medication Instructions Recorded Confirmed Last Taken Type Albuterol Mdi (or & Nicu Only) 2 puff IH QID PRN 04/26/21 05/29/21 Unknown History [ProAir HFA Inhaler] ED Physical Exam - General Limitations: No Limitations General appearance: alert, in no apparent distress, other (Calm cooperative) - Head Head exam: Present: atraumatic, normocephalic - Eye Eye exam: Present: normal appearance - ENT ENT exam: Present: mucous membranes moist - Neck Neck exam: Present: normal inspection, full ROM - Respiratory Respiratory exam: Present: normal lung sounds bilaterally. Absent: respiratory distress, wheezes, rales, rhonchi - Cardiovascular Cardiovascular Exam: Present: regular rate, normal rhythm, normal heart sounds. Absent: systolic murmur, diastolic murmur, rubs, gallop - GI/Abdominal GI/Abdominal exam: Present: soft, normal bowel sounds. Absent: distended, tenderness, guarding, rebound - Extremities Exam Extremities exam: Present: normal inspection - Neurological Exam Neurological exam: Present: alert, oriented X3 - Psychiatric Psychiatric exam: Present: normal mood, flat affect - Skin Skin exam: Present: warm, dry, intact, normal color. Absent: rash ED Course Vital Signs 05/28/21 05/28/21 05/29/21 18:13 20:12 08:00 Temperature 97.6 F 98.0 F 97.9 F Pulse Rate 68 74 73 Respiratory 16 18 18 Rate Blood Pressure 122/77 Blood Pressure 122/76 111/78 113/75 [Right] O2 Sat by Pulse 100 100 98 Oximetry ED Medical Decision Making - Lab Data Result diagrams: 05/28/21 18:11 05/28/21 18:11 - Medical Decision Making Ms. Rey is a 35-year-old female with history of bipolar disorder schizo phrenia who presents with hallucinations telling her to "kill myself". She does not have a plan to harm herself. She is calm cooperative. She does not appear to be responding to internal stimuli. She admits to medication noncompliance. She stated that she went to be placed in a alf. Consults to psychiatry and case management in place. Patient is medically clear for psychiatric care. I have reviewed labs. Patient has mild anemia. Patient has contaminated urinalysis. No need for antibiotics. No indication of UTI. Patient is medically clear for psychiatric care. Critical care attestation.: If time is entered above; I have spent that time in minutes in the direct care of this critically ill patient, excluding procedure time. ED Disposition Clinical Impression: Bipolar disorder, Schizophrenia Disposition: DC-01 TO HOME OR SELFCARE Is pt being admited?: No Does the pt Need Aspirin: No Condition: Stable Instructions: Managing Bipolar Disorder, Schizophrenia Additional Instructions: Please follow-up as an outpatient using the following resources in 7 to 14 days. Return to the emergency department should you develop thoughts of hurting yourself or others, or any other concerning symptoms. Professional and Agency Contacts To help [facility](10/06) [place] Crisis Line: Suicide Prevention Line: Crisis Text Line: Text START to 419889 Emergency: 911 Outpatient [facility] Behavioral Health Resources: [place]: [facility] [address] [place], [place] [address] [place]: [address] [address] [place]: [facility] - [address] [place] [address] Saturday thru Saturday - 8am - 5pm [facility] Address: [address] [place] [address] [place]: [facility] Address: [address] [place] [address] Saturday thru Saturday- 7am-2pm [facility] Address: [address] [place] [address] Saturday thru Saturday: 8:30AM-5PM OUTPATIENT MENTAL HEALTH RESOURCES [facility], [address] [place] [address] [facility] Maggie Bearden MD: [address] [facility] [address] [place], [place] [id number] [facility]: [address] [place], [place] [id number] [place] [address] [phone] [facility]: [address] [facility] [address] [place] [address] [facility]: [address] [place] [address] [facility]: [address] [place] [address] Dylan Hopkins MD: [address] [facility] [address] [facility]: [address] [place] [id number] [phone] [place] CRISIS AND ACCESS LINE: * Referrals: PRIMARY CAREMD [Primary Care Provider] - 3-5 Days
[2021-05-28 18:25] LABS: Basophils # (Auto) 0.1 K/mm3 (0.0-0.1); Basophils % (Auto) 0.8 % (0.0-1.8); Eosinophils # (Auto) 0.1 K/mm3 (0.0-0.4); Eosinophils % (Auto) 1.9 % (0.0-4.3); Hematocrit 28.1 % (30.3-42.9); Hemoglobin 9.2 gm/dl (10.1-14.3); Lymphocytes # (Auto) 1.8 K/mm3 (1.2-5.4); Lymphocytes % (Auto) 26.2 % (13.4-35.0); Mean Corpuscular HGB Conc 33 % (30-34); Mean Corpuscular Volume 78 fl (79-97); Monocytes # (Auto) 0.6 K/mm3 (0.0-0.8); Monocytes % (Auto) 9.1 % (0.0-7.3); Platelet Count 176 K/mm3 (140-440); Red Blood Count 3.59 M/mm3 (3.65-5.03); Red Cell Distribution Width 17.2 % (13.2-15.2)
[2021-05-28 18:37] LABS: Bilirubin,Urine NEG (Negative); Blood,Urine LG (Negative); Color,Urine Yellow (Yellow); Mucus,Urine FEW /HPF; Protein,Urine <15 mg/dL mg/dL (Negative); Urobilinogen,Urine < 2.0 mg/dL (<2.0)
[2021-05-28 18:41] LABS: Amphetamine Screen,Urine PRESUMPTIVE NEGATIVE; Benzodiazepines Screen,Urine PRESUMPTIVE NEGATIVE; Cannabinoid Screen,Urine PRESUMPTIVE NEGATIVE; Cocaine Screen,Urine PRESUMPTIVE NEGATIVE; Methadone Screen,Urine PRESUMPTIVE NEGATIVE; Opiate Screen,Urine PRESUMPTIVE NEGATIVE
[2021-05-28 18:45] LABS: BUN/Creatinine Ratio 18; Blood Urea Nitrogen 14 mg/dL (7-17); Calcium 8.8 mg/dL (8.4-10.2); Hemolysis Index 4
[2021-05-28] MEDS: ACETAMINOPHEN 325 MG TAB PO PRN (21:06)
[2021-05-29] MEDS ORDERED: traZODone 50 MG TAB PO ONE (00:48)
[2021-05-29 08:35] VITALS: BP 113/75
--- NOTE | 2021-05-29 11:02 | Consultation ---
History of Present Illness - Reason for Consult Consult date: 05/29/21 Reason for consult: Suicidal Ideation - History of Present Psychiatric Illness Per Ed Note: This is a 35-year-old female who presents via EMS with history of bipolar disorder and schizophrenia. She states that "I am having hallucinations." I asked what the voices are telling her. She states the voices are telling her to "kill myself". She denies plan to harm herself. She denies any physical complaints. She stated that her friend called 911. She wants to be placed in a intermediate. She cannot recall the name of her psychiatric medications. She has not taken her psychiatric medications in quite some time. She was last evaluated in this emergency department for mental he alth disorder last month. Kesha Rey is a 35 year old female with a history of Schizophrenia, Bipolar, and Anxiety who presents to ED with SI. In my interview with the patient, she reports that she lives in a intermediate. She reports that " I was going through some in the half-way. I don't get along with Tracy, she is always fussing with me." Patient is unable to recall psychotropic medications stating that "[facility] took me out of my meds." The patient denies any current suicidal/homicidal ideation and denies hallucinations. PAST PSYCHIATRIC HISTORY: Diagnoses: Schizophrenia, Bipolar, and Anxiety Suicide attempts or Self-harm behavior: Denies Prior psychiatric hospitalizations: Yes Substance Abuse history: Denies Previous psychiatric medications tried: Denies Outpatient treatment: Unknown PAST MEDICAL HISTORY: None reported or document Family Psychiatric History: None reported or documented SOCIAL HISTORY Marital Status: Single Living Arrangements: long-term Employment Status:Unemployed Access to guns/weapons: denies Education: [employer] History of Abuse: denies Legal History: denies REVIEW OF SYSTEMS Constitutional: Negative for weight loss ENT: Negative for stridor Respiratory: Negative for cough or hemoptysis All other systems reviewed and are negative MENTAL STATUS EXAMINATION General Appearance and Behavior: Age appropriate, wearing appropriate clothes, cooperative, polite with questioning, fair eye contact, calm Cooperation: cooperative Psychomotor Behavior: Psychomotor normal Mood: "ok" Affect and affective range: congruent with stated mood Thought Process: goal directed Thought Content: Denies SI Speech: Normal volume, Regular rate and rhythm Suicidal Ideation: Denies Homicidal Ideation: Denies hallucination: Denies Delusions: None elicited Impulse Control: Intact Insight and Judgment: Limited Memory: Intact Attention:Distractible Orientation: Alert and oriented Diagnoses: Schizophrenia-F20.9 Treatment Plan PSYCHOTHERAPY: Supportive psychotherapy provided MEDICAL: Per primary team DELIRIUM PRECAUTIONS: Please re-orient patient frequently, keep lights on during the day, and minimize benzodiazepines and opiates as these medications could worsen patient's confusion. [facility] SITE MANAGER: Per medical team DISPOSITION: Do not recommend acute psychiatric inpatient treatment Will sign off. The patient should be compliant with medications, not to use drugs and not to drink alcohol. The patient understands that if suicidal ideas, homicidal ideas or any endangering thoughts/behavior should arise, they should immediately seek for emergent assistance including but not limited to crisis hot line and emergency room. Follow up with outpatient psychiatry and PCP within 7- 14 day post discharge. Please contact with any questions and/or concerns. Thank you for the consult. Case staffed with Dr. Gomez Medications and Allergies Allergies Allergy/AdvReac Type Severity Reaction Status Date / Time No Known Allergies Allergy Verified 04/29/21 08:40 Home Medications Medication Instructions Recorded Confirmed Last Taken Type Albuterol Mdi (or & Nicu Only) 2 puff IH QID PRN 04/26/21 04/26/21 Unknown History [ProAir HFA Inhaler] Active Meds: Active Medications Acetaminophen (Acetaminophen 325 Mg Tab) 650 mg PO Q4HR PRN PRN Reason: Pain MILD(1-3)/Fever >100.5/[place] Last Admin: 05/28/21 21:06 Dose: 650 mg Documented by: Al Hydrox/Mg Hydrox/Simethicone (Alum-Mag Hydroxide-Simethicone [id number]/5ml Oral Liqd 30 Ml) 30 ml PO Q4HR PRN PRN Reason: Indigestion Last Admin: 05/29/21 05:09 Dose: 30 ml Documented by: Magnesium Hydroxide (Magnesium Hydroxide (Mom) Oral Liqd Udc) 30 ml PO Q12HR PRN PRN Reason: Constipation Mental Status Exam - Vital signs Last Vital Signs Temp 97.9 F 05/29/21 08:00 Pulse 73 05/29/21 08:00 Resp 18 05/29/21 08:00 BP 113/75 05/29/21 08:00 Pulse Ox 98 05/29/21 08:00 Results Result Diagrams: 05/28/21 18:11 07/11/21 18:11 Abnormal lab results 05/28/21 05/28/21 05/28/21 Range/Units 18:11 18:11 18:11 RBC 3.59 L (3.65-5.03) M/mm3 Hgb 9.2 L (10.1-14.3) gm/dl Hct 28.1 L (30.3-42.9) % MCV 78 L (79-97) fl MCH 26 L (28-32) pg RDW 17.2 H (13.2-15.2) % [place] % (Auto) 9.1 H (0.0-7.3) % Urine WBC (Auto) (0.0-6.0) /HPF Salicylates < 0.3 L (2.8-20.0) mg/dL Acetaminophen 5.0 L (10.0-30.0) ug/mL 05/28/21 Range/Units 18:13 RBC (3.65-5.03) M/mm3 Hgb (10.1-14.3) gm/dl Hct (30.3-42.9) % MCV (79-97) fl MCH (28-32) pg RDW (13.2-15.2) % [place] % (Auto) (0.0-7.3) % Urine WBC (Auto) 7.0 H (0.0-6.0) /HPF Salicylates (2.8-20.0) mg/dL Acetaminophen (10.0-30.0) ug/mL All other labs normal.
[2021-05-29] MEDS: ACETAMINOPHEN 325 MG TAB PO PRN (11:59)
--- NOTE | 2021-05-29 12:36 | Event Note ---
Date: 05/29/21 35-year-old female with history of schizophrenia and bipolar disorder who presented initially with reports of command auditory hallucinations telling her to harm herself. The patient was seen by my colleague and was medically cleared for psychiatric evaluation and placement. Patient was seen by the psychiatry/mental health team this morning and she no longer states that she has SI or hallucinations. They recommend discharge with outpatient follow-up. I went and spoke to the patient myself and she denied SI/HI or hallucinations. When asked why she reported this initially she stated that she wanted to be seen and wanted to get attention. Vital signs have been stable. We will plan to discharge the patient with proper resources for follow-up.
== END 2021-05-29 18:45 | disposition home or self-care (01) ==
LOC: ED 17:36
DX: R45.851 Suicidal ideations (principal); F31.9 Bipolar disorder, unspecified; Z20.822 Contact with and (suspected) exposure to COVID-19; F20.9 Schizophrenia, unspecified; Z86.69 Personal history of other diseases of the nervous system and sense organs; Z79.899 Other long term (current) drug therapy
CPT/HCPCS: 36415; 80048; 80307; 81001; 84703; 85025; 99284; U0003; 80320; G0480

== ENCOUNTER 2021-07-15 11:17 | Emergency (ER) | payer SELFPAY ==
[2021-07-15 11:26] VITALS: BP 118/82
--- NOTE | 2021-07-15 13:44 | Emergency Department Report ---
ED General Adult HPI - General Chief complaint: Abdominal Pain Stated complaint: N/V Time Seen by Provider: 07/15/21 13:38 Source: patient, EMS Mode of arrival: Stretcher Limitations: No Limitations - History of Present Illness Initial comments: Patient is a 35-year-old female presents emergency room complaints of left upper quadrant abdominal discomfort that exacerbated last night. She states that last night she had nausea and episode of vomiting. Patient states that she has had this intermittently for "her whole life." She has never seen a GI specialist for these symptoms. She denies any fever, diarrhea, hematochezia, melena, hematemesis, urinary symptoms. She has been able to tolerate p.o. intake today and has had no episodes of vomiting today. Past medical history of bipolar schizophrenia. She denies any SI or HI. No allergies to medications. - Related Data Home Medications Medication Instructions Recorded Confirmed Last Taken Albuterol Mdi (or & Nicu Only) 2 puff IH QID PRN 04/26/21 05/29/21 Unknown [ProAir HFA Inhaler] Previous Rx's Medication Instructions Recorded Last Taken Type Famotidine [Pepcid] 40 mg PO QHS #30 tablet 07/15/21 Unknown Rx Ondansetron [Zofran Odt] 4 mg PO Q8HR PRN #12 tab.rapdis 07/15/21 Unknown Rx Allergies Allergy/AdvReac Type Severity Reaction Status Date / Time No Known Allergies Allergy Verified 04/29/21 08:40 ED Review of Systems ROS: Stated complaint: N/V Other details as noted in HPI Comment: All other systems reviewed and negative ED Past Medical Hx - Past Medical History Hx Seizures: Yes Hx Psychiatric Treatment: Yes (bipolar scizophrenia) - Surgical History Additional Surgical History: "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 - Social History Smoking Status: Never Smoker - Medications Home Medications: Home Medications Medication Instructions Recorded Confirmed Last Taken Type Albuterol Mdi (or & Nicu Only) 2 puff IH QID PRN 04/26/21 05/29/21 Unknown History [ProAir HFA Inhaler] Famotidine [Pepcid] 40 mg PO QHS #30 tablet 07/15/21 Unknown Rx Ondansetron [Zofran Odt] 4 mg PO Q8HR PRN #12 tab.rapdis 07/15/21 Unknown Rx ED Physical Exam - General Limitations: No Limitations General appearance: alert, in no apparent distress - Head Head exam: Present: atraumatic, normocephalic - Eye Eye exam: Present: normal appearance - ENT ENT exam: Present: mucous membranes moist - Respiratory Respiratory exam: Present: normal lung sounds bilaterally. Absent: respiratory distress, wheezes, rales, rhonchi, stridor, chest wall tenderness, accessory muscle use, decreased breath sounds, prolonged expiratory - Cardiovascular Cardiovascular Exam: Present: regular rate, normal rhythm, normal heart sounds. Absent: systolic murmur, diastolic murmur, rubs, gallop - GI/Abdominal GI/Abdominal exam: Present: soft, normal bowel sounds. Absent: distended, tenderness, guarding, rebound, rigid - Neurological Exam Neurological exam: Present: alert, oriented X3 - Psychiatric Psychiatric exam: Present: normal affect, normal mood - Skin Skin exam: Present: warm, dry, intact ED Course Vital Signs 07/15/21 11:20 Temperature 98.4 F Pulse Rate 91 H Respiratory 16 Rate Blood Pressure 118/82 O2 Sat by Pulse 99 Oximetry ED Medical Decision Making - Lab Data Result diagrams: 07/15/21 14:02 07/15/21 14:02 Lab Results 07/15/21 07/15/21 07/15/21 Range/Units 14:02 14:02 14:02 WBC 10.0 (4.5-11.0) K/mm3 RBC 4.17 (3.65-5.03) M/mm3 Hgb 10.8 (10.1-14.3) gm/dl Hct 33.1 (30.3-42.9) % MCV 79 (79-97) fl MCH 26 L (28-32) pg MCHC 33 (30-34) % RDW 17.7 H (13.2-15.2) % Plt Count 171 (140-440) K/mm3 Lymph % (Auto) 14.7 (13.4-35.0) % [place] % (Auto) 6.2 (0.0-7.3) % Eos % (Auto) 0.2 (0.0-4.3) % Baso % (Auto) 0.5 (0.0-1.8) % Lymph # (Auto) 1.5 (1.2-5.4) K/mm3 [place] # (Auto) 0.6 (0.0-0.8) K/mm3 Eos # (Auto) 0.0 (0.0-0.4) K/mm3 Baso # (Auto) 0.1 (0.0-0.1) K/mm3 Seg Neutrophils % 78.4 H (40.0-70.0) % Seg Neutrophils # 7.9 H (1.8-7.7) K/mm3 Sodium 134 L (137-145) mmol/L Potassium 3.6 (3.6-5.0) mmol/L Chloride 101.6 (98-107) mmol/L Carbon Dioxide 21 L (22-30) mmol/L Anion Gap 15 mmol/L BUN 10 (7-17) mg/dL Creatinine 0.7 (0.6-1.2) mg/dL Estimated GFR > 60 ml/min BUN/Creatinine Ratio 14 % Glucose 96 (65-100) mg/dL Calcium 9.2 (8.4-10.2) mg/dL Total Bilirubin 0.90 (0.1-1.2) mg/dL AST 19 (5-40) units/L ALT 10 (7-56) units/L Alkaline Phosphatase 86 (35-129) units/L Total Protein 8.1 (6.3-8.2) g/dL Albumin 4.2 (3.9-5) g/dL Albumin/Globulin Ratio 1.1 % Lipase 18 (13-60) units/L HCG, Qual Negative (Negative) Urine Color (Yellow) Urine Turbidity (Clear) Urine pH (5.0-7.0) Ur Specific [place] (1.003-1.030) Urine Protein (Negative) mg/dL Urine Glucose (UA) (Negative) mg/dL Urine Ketones (Negative) mg/dL Urine Blood (Negative) Urine Nitrite (Negative) Urine Bilirubin (Negative) Urine Urobilinogen (<2.0) mg/dL Ur Leukocyte Esterase (Negative) Urine WBC (Auto) (0.0-6.0) /HPF Urine RBC (Auto) (0.0-6.0) /HPF U Epithel Cells (Auto) (0-13.0) /HPF 07/15/ Range/Units Unknown WBC (4.5-11.0) K/mm3 RBC (3.65-5.03) M/mm3 Hgb (10.1-14.3) gm/dl Hct (30.3-42.9) % MCV (79-97) fl MCH (28-32) pg MCHC (30-34) % RDW (13.2-15.2) % Plt Count (140-440) K/mm3 Lymph % (Auto) (13.4-35.0) % [place] % (Auto) (0.0-7.3) % Eos % (Auto) (0.0-4.3) % Baso % (Auto) (0.0-1.8) % Lymph # (Auto) (1.2-5.4) K/mm3 [place] # (Auto) (0.0-0.8) K/mm3 Eos # (Auto) (0.0-0.4) K/mm3 Baso # (Auto) (0.0-0.1) K/mm3 Seg Neutrophils % (40.0-70.0) % Seg Neutrophils # (1.8-7.7) K/mm3 Sodium (137-145) mmol/L Potassium (3.6-5.0) mmol/L Chloride (98-107) mmol/L Carbon Dioxide (22-30) mmol/L Anion Gap mmol/L BUN (7-17) mg/dL Creatinine (0.6-1.2) mg/dL Estimated GFR ml/min BUN/Creatinine Ratio % Glucose (65-100) mg/dL Calcium (8.4-10.2) mg/dL Total Bilirubin (0.1-1.2) mg/dL AST (5-40) units/L ALT (7-56) units/L Alkaline Phosphatase (35-129) units/L Total Protein (6.3-8.2) g/dL Albumin (3.9-5) g/dL Albumin/Globulin Ratio % Lipase (13-60) units/L HCG, Qual (Negative) Urine Color Straw (Yellow) Urine Turbidity Clear (Clear) Urine pH 5.0 (5.0-7.0) Ur Specific [place] 1.009 (1.003-1.030) Urine Protein <15 mg/dl (Negative) mg/dL Urine Glucose (UA) Neg (Negative) mg/dL Urine Ketones Neg (Negative) mg/dL Urine Blood Sm (Negative) Urine Nitrite Neg (Negative) Urine Bilirubin Neg (Negative) Urine Urobilinogen < 2.0 (<2.0) mg/dL Ur Leukocyte Esterase Neg (Negative) Urine WBC (Auto) 1.0 (0.0-6.0) /HPF Urine RBC (Auto) 1.0 (0.0-6.0) /HPF U Epithel Cells (Auto) 1.0 (0-13.0) /HPF - Medical Decision Making Patient is a 35-year-old female presents emergency room complaints of left upper quadrant abdominal discomfort that exacerbated last night. She states that last night she had nausea and episode of vomiting. Patient states that she has had this intermittently for "her whole life." She has never seen a GI specialist for these symptoms. She denies any fever, diarrhea, hematochezia, melena, hematemesis, urinary symptoms. She has been able to tolerate p.o. intake today and has had no episodes of vomiting today. Past medical history of bipolar schizophrenia. She denies any SI or HI. No allergies to medications. Vitals are normal. On exam patient has mild left upper quadrant tenderness palpation, no guarding, no rebound, no rigidity, nor masses, no peritoneal signs. Labs are stable. hCG is negative. UA is within normal limits. Patient is able to tolerate p.o. intake and she has not had any episodes of vomiting since last night. Patient given prescription for medication. Advised patient Take medicat ion as prescribed. Increase your fluid intake. Follow-up with a primary care doctor. Follow-up with a GI doctor. Return to emergency room for any new or worsening symptoms. Critical care attestation.: If time is entered above; I have spent that time in minutes in the direct care of this critically ill patient, excluding procedure time. ED Disposition Clinical Impression: Abdominal pain Qualifiers: Abdominal location: left upper quadrant Qualified Code(s): R10.12 - Left upper quadrant pain Nausea & vomiting Qualifiers: Vomiting type: unspecified Vomiting Intractability: non-intractable Qualified Code(s): R11.2 - Nausea with vomiting, unspecified Disposition: 01 HOME / SELF CARE / HOMELESS Is pt being admited?: No Does the pt Need Aspirin: No Condition: Stable Instructions: Gastritis, Adult, Food Choices for Gastroesophageal Reflux Diseas e, Adult, Abdominal Pain (ED) Additional Instructions: Take medication as prescribed. Increase your fluid intake. Follow-up with a primary care doctor. Follow-up with a GI doctor. Return to emergency room for any new or worsening symptoms. Prescriptions: Famotidine [Pepcid] 40 mg PO QHS #30 tablet Ondansetron [Zofran Odt] 4 mg PO Q8HR PRN #12 tab.rapdis PRN Reason: nausea/vomiting Referrals: PRIMARY CARE, [Primary Care Provider] - 2-3 Days [facility] [Provider Group] - 2-3 Days Time of Disposition: 15:28 Print Language: AMHARIC
[2021-07-15 14:38] LABS: Basophils # (Auto) 0.1 K/mm3 (0.0-0.1); Basophils % (Auto) 0.5 % (0.0-1.8); Eosinophils % (Auto) 0.2 % (0.0-4.3); Hematocrit 33.1 % (30.3-42.9); Hemoglobin 10.8 gm/dl (10.1-14.3); Lymphocytes # (Auto) 1.5 K/mm3 (1.2-5.4); Lymphocytes % (Auto) 14.7 % (13.4-35.0); Mean Corpuscular HGB Conc 33 % (30-34); Mean Corpuscular Volume 79 fl (79-97); Monocytes # (Auto) 0.6 K/mm3 (0.0-0.8); Monocytes % (Auto) 6.2 % (0.0-7.3); Red Blood Count 4.17 M/mm3 (3.65-5.03); Red Cell Distribution Width 17.7 % (13.2-15.2)
[2021-07-15 14:52] LABS: Alanine Aminotransferase 10 units/L (7-56); Albumin 4.2 g/dL (3.9-5); Blood Urea Nitrogen 10 mg/dL (7-17); Calcium 9.2 mg/dL (8.4-10.2); Hemolysis Index 3
[2021-07-15 15:03] LABS: BUN/Creatinine Ratio 14; Platelet Count 171 K/mm3 (140-440)
[2021-07-15 15:11] LABS: Bilirubin,Urine NEG (Negative); Blood,Urine SM (Negative); Color,Urine Straw (Yellow); Protein,Urine <15 mg/dL mg/dL (Negative); Urobilinogen,Urine < 2.0 mg/dL (<2.0)
== END 2021-07-15 15:48 | disposition home or self-care (01) ==
LOC: ED 11:17
DX: R10.12 Left upper quadrant pain (principal); R11.2 Nausea with vomiting, unspecified; F25.0 Schizoaffective disorder, bipolar type; Z79.899 Other long term (current) drug therapy; Z86.69 Personal history of other diseases of the nervous system and sense organs; Z98.890 Other specified postprocedural states
CPT/HCPCS: 36415; 80053; 81001; 83690; 84703; 85025

== ENCOUNTER 2022-02-15 09:08 | Emergency (ER) | payer MEDICARE ==
[2022-02-15 09:14] VITALS: BP 147/82
--- NOTE | 2022-02-15 09:36 | Emergency Department Report ---
ED Female HPI - General Chief complaint: Vaginal Bleeding Stated complaint: VAGINAL BLEEDING Time Seen by Provider: 02/15/22 09:23 Source: patient Mode of arrival: Ambulatory Limitations: No Limitations - History of Present Illness Initial comments: Patient is a 36-year-old female that comes to the emergency room with vaginal bleeding. She states that she has had a period in several months. She is sexually active with control. She states her periods are normally irregular. She denies any abdominal pain, vaginal discharge, back pain, fever or chills. She is ambulatory to the ER MD Complaint: vaginal bleeding -: Sudden - Related Data Home Medications Medication Instructions Recorded Confirmed Last Taken Albuterol Mdi (or & Nicu Only) 2 puff IH QID PRN 04/26/21 05/29/21 Unknown [ProAir HFA Inhaler] Previous Rx's Medication Instructions Recorded Last Taken Type Famotidine [Pepcid] 40 mg PO QHS #30 tablet 07/15/21 Unknown Rx Ondansetron [Zofran Odt] 4 mg PO Q8HR PRN #12 tab.rapdis 07/15/21 Unknown Rx Allergies Allergy/AdvReac Type Severity Reaction Status Date / Time No Known Allergies Allergy Verified 04/29/21 08:40 ED Review of Systems ROS: Stated complaint: VAGINAL BLEEDING Other details as noted in HPI Comment: All other systems reviewed and negative ED Past Medical Hx - Past Medical History Previous Medical History?: Yes Hx Seizures: Yes Hx Psychiatric Treatment: Yes (bipolar scizophrenia) - Surgical History Past Surgical History?: Yes Additional Surgical History: "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 - Family History Family history: no significant - Social History Smoking Status: Never Smoker Substance Use Type: None - Medications Home Medications: Home Medications Medication Instructions Recorded Confirmed Last Taken Type Albuterol Mdi (or & Nicu Only) 2 puff IH QID PRN 04/26/21 05/29/21 Unknown History [ProAir HFA Inhaler] Famotidine [Pepcid] 40 mg PO QHS #30 tablet 07/15/21 Unknown Rx Ondansetron [Zofran Odt] 4 mg PO Q8HR PRN #12 tab.rapdis 07/15/21 Unknown Rx ED Physical Exam - General Limitations: No Limitations General appearance: alert, in no apparent distress - Head Head exam: Present: atraumatic, normocephalic - Eye Eye exam: Present: normal appearance - ENT ENT exam: Present: mucous membranes moist - Neck Neck exam: Present: normal inspection - Respiratory Respiratory exam: Present: normal lung sounds bilaterally. Absent: respiratory distress - Cardiovascular Cardiovascular Exam: Present: regular rate, normal rhythm. Absent: systolic murmur, diastolic murmur, rubs, gallop - GI/Abdominal GI/Abdominal exam: Present: soft, normal bowel sounds - Extremities Exam Extremities exam: Present: normal inspection - Back Exam Back exam: Present: normal inspection - Neurological Exam Neurological exam: Present: alert, oriented X3 - Psychiatric Psychiatric exam: Present: normal affect, normal mood - Skin Skin exam: Present: warm, dry, intact, normal color. Absent: rash ED Course Vital Signs 02/15/22 09:11 Temperature 98 F Pulse Rate 84 Respiratory 16 Rate Blood Pressure 147/82 [Left] O2 Sat by Pulse 97 Oximetry ED Medical Decision Making - Medical Decision Making Labs 02/15/22 02/15/22 09:34 Unknown Urine Color Yellow Urine Turbidity Hazy Urine pH 5.0 Ur Specific [place] 1.030 Urine Protein 30 mg/dl Urine Glucose (UA) Neg Urine Ketones Tr Urine Blood Lg Urine Nitrite Neg Urine Bilirubin Neg Urine Urobilinogen < 2.0 Ur Leukocyte Esterase Neg Urine WBC (Auto) 3.0 Urine RBC (Auto) 28.0 U Epithel Cells (Auto) 2.0 Urine Mucus 3+ Urine HCG, Qual Negative Vital Signs 02/15/22 09:11 Temperature 98 F Pulse Rate 84 Respiratory 16 Rate Blood Pressure 147/82 [Left] O2 Sat by Pulse 97 Oximetry U. Pred negative. UA noted. Patient states the bleeding is light. She has no hypotension or tachycardia. Vital signs are stable and normal Patient discharged home with discharge plan of care including diet, activity, medications and follow-up. Patient verbalizes understanding of discharge plan of care - Differential Diagnosis Rule out Critical care attestation.: If time is entered above; I have spent that time in minutes in the direct care of this critically ill patient, excluding procedure time. ED Disposition Clinical Impression: Menses, irregular Disposition: 01 HOME / SELF CARE / HOMELESS Is pt being admited?: No Does the pt Need Aspirin: No Condition: Stable Instructions: Menstruation, Dysfunctional Uterine Bleeding Additional Instructions: Safe sex Follow-up with [facility]. Referral below. Referrals: CAROL COOPER MD [Staff Physician] - 3-5 Days Time of Disposition: 10:16
[2022-02-15 09:45] LABS: Bilirubin,Urine NEG (Negative); Blood,Urine LG (Negative); Color,Urine Yellow (Yellow); Mucus,Urine 3+ /HPF; Urobilinogen,Urine < 2.0 mg/dL (<2.0)
[2022-02-15 10:03] LABS: HCG Qualitative,Urine Negative (Negative)
== END 2022-02-15 11:00 | disposition home or self-care (01) ==
LOC: EDBD 09:08 → ED 09:08
DX: N92.6 Irregular menstruation, unspecified (principal); F31.9 Bipolar disorder, unspecified
CPT/HCPCS: 81001; 81025; 99283

== ENCOUNTER 2022-03-15 11:54 | Emergency (ER) | payer MEDICARE ==
[2022-03-15 13:36] VITALS: BP 134/86
--- NOTE | 2022-03-15 13:58 | Emergency Department Report ---
ED General Adult HPI - General Chief complaint: Pain General Stated complaint: BILATERAL LEG PAIN Time Seen by Provider: 03/15/22 13:22 Source: patient, EMS Mode of arrival: Ambulatory Limitations: No Limitations - History of Present Illness Initial comments: 36-year-old female presents to the ED complaining right hip and leg pain after a fall x1 day ago. She states that she was getting out of the tub last night when she feel. Denies any LOC. Patient is alert and oriented x3. No acute distress noted. No ill appearance noted. Patient is ambulatory with a limp. No obvious deformity noted. no distracting injury noted. Patient states pain is current 4 out of 10. Patient denies any prior treatment to arrival. Onset/Timin -: days(s) Location: right, upper extremity, lower extremity Radiation: non-radiation Severity scale (0 -10): 5 Quality: aching Consistency: intermittent Improves with: none Worsens with: none Associated Symptoms: denies other symptoms - Related Data Home Medications Medication Instructions Recorded Confirmed Last Taken Albuterol Mdi (or & Nicu Only) 2 puff IH QID PRN 04/26/21 03/15/22 Unknown [ProAir HFA Inhaler] Previous Rx's Medication Instructions Recorded Last Taken Type Famotidine [Pepcid] 40 mg PO QHS #30 tablet 07/15/21 Unknown Rx Ondansetron [Zofran Odt] 4 mg PO Q8HR PRN #12 tab.rapdis 07/15/21 Unknown Rx Meloxicam [Mobic] 15 mg PO BID 15 Days #30 tab 03/15/22 Unknown Rx Allergies Allergy/AdvReac Type Severity Reaction Status Date / Time No Known Allergies Allergy Verified 03/15/22 13:37 ED Review of Systems ROS: Stated complaint: BILATERAL LEG PAIN Other details as noted in HPI Constitutional: denies: chills, fever Eyes: denies: eye pain, eye discharge, vision change ENT: denies: ear pain, throat pain Respiratory: denies: cough, shortness of breath, wheezing Cardiovascular: denies: chest pain, palpitations Endocrine: no symptoms reported Gastrointestinal: denies: abdominal pain, nausea, diarrhea Genitourinary: denies: urgency, dysuria, discharge Musculoskeletal: denies: back pain, joint swelling, arthralgia Skin: denies: rash, lesions Neurological: denies: headache, weakness, paresthesias Psychiatric: denies: anxiety, depression Hematological/Lymphatic: denies: easy bleeding, easy bruising ED Past Medical Hx - Past Medical History Hx Seizures: Yes Hx Psychiatric Treatment: Yes (bipolar scizophrenia) - Surgical History Additional Surgical History: "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 - Social History Smoking Status: Never Smoker Substance Use Type: None - Medications Home Medications: Home Medications Medication Instructions Recorded Confirmed Last Taken Type Albuterol Mdi (or & Nicu Only) 2 puff IH QID PRN 04/26/21 03/15/22 Unknown History [ProAir HFA Inhaler] Famotidine [Pepcid] 40 mg PO QHS #30 tablet 07/15/21 03/15/22 Unknown Rx Ondansetron [Zofran Odt] 4 mg PO Q8HR PRN #12 tab.rapdis 07/15/21 03/15/22 Unknown Rx Meloxicam [Mobic] 15 mg PO BID 15 Days #30 tab 03/15/22 Unknown Rx ED Physical Exam - General Limitations: No Limitations General appearance: alert, in no apparent distress - Head Head exam: Present: atraumatic, normocephalic - Eye Eye exam: Present: normal appearance - ENT ENT exam: Present: mucous membranes moist - Neck Neck exam: Present: normal inspection - Respiratory Respiratory exam: Present: normal lung sounds bilaterally. Absent: respiratory distress - Cardiovascular Cardiovascular Exam: Present: regular rate, normal rhythm. Absent: systolic murmur, diastolic murmur, rubs, gallop - GI/Abdominal GI/Abdominal exam: Present: soft, normal bowel sounds - Extremities Exam Extremities exam: Present: normal inspection - Back Exam Back exam: Present: normal inspection - Neurological Exam Neurological exam: Present: alert, oriented X3 - Psychiatric Psychiatric exam: Present: normal affect, normal mood - Skin Skin exam: Present: warm, dry, intact, normal color. Absent: rash ED Course Vital Signs 03/15/22 03/15/22 12:04 13:35 Temperature 98.4 F 98.9 F Pulse Rate 91 H 88 Respiratory 16 18 Rate Blood Pressure 118/90 134/86 [Left] O2 Sat by Pulse 99 99 Oximetry ED Medical Decision Making - Radiology Data [facility] [address] [place] [address] XRay Report Signed Patient: GABRIELA LANGFORD MR#: [id number] : 1985 Acct:[id number] Age/Sex: 36 / F ADM Date: 03/15/22 Loc: ED Attending Dr: Ordering Physician: JANICE GERARDO Date of Service: 03/15/22 Procedure(s): XR hip 2-3V RT Accession Number(s): [id number] cc: JANICE GERARDO Fluoro Time In Minutes: RIGHT HIP 2 VIEWS INDICATION: right hip pain after fall. COMPARISON: None. IMPRESSION: No acute osseous or soft tissue abnormality. No significant DJD. Signer Name: Haile Ma Jr, MD Signed: 03/15/2022 2:04 PM Workstation Name: [id number] Transcribed By: TTR Dictated By: HAILE MA JR, MD Electronically Authenticated By: HAILE MA JR, MD Signed Date/Time: 03/15/221403 DD/ 03 TD/TT: Print Cancel - Medical Decision Making 36-year-old female presents to the ED complaining right hip and leg pain after a fall x1 day ago. She states that she was getting out of the tub last night when she feel. Denies any LOC. Patient is alert and oriented x3. No acute distress noted. No ill appearance noted. Patient is ambulatory with a limp. No obvious deformity noted. no distracting injury noted. Patient states pain is current 4 out of 10. Patient denies any prior treatment to arrival. Physical examination patient has a small contusion noted to the right hip. 2 view right hip x-ray showed no abnormality. Patient is to follow-up with orthopedic Rechecked the patient is resting quietly quietly and comfortable and feeling better. I discussed the results of diagnostic study, my clinical impression and the plan for further treatment with the patient. Patient agrees with plan and discharge at this present time. All question addressed. I have given the patient instruction regarding a diagnosis ,expectation ,follow- up and return precaution. I explained to the patient that emergent condition may arise and to return to the ED for new worsen and any new persisting condition. I have explained the importance of following up with the primary care physician or referral physician listed below has instructed. The patient verbalized understanding of discharge instruction. Critical care attestation.: If time is entered above; I have spent that time in minutes in the direct care of this critically ill patient, excluding procedure time. ED Disposition Clinical Impression: Right hip pain Disposition: 01 HOME / SELF CARE / HOMELESS Is pt being admited?: No Does the pt Need Aspirin: No Condition: Stable Instructions: Hip Pain, How to Use Cold Therapy, [id number] Additional Instructions: Take medication as prescribed prescribed Turn to the ED for any worsening symptom Prescriptions: Meloxicam [Mobic] 15 mg PO BID 15 Days #30 tab Referrals: [facility] [Provider Group] - 3-5 Days MICHELLE ETIENNE MD [Staff Physician] - 3-5 Days Forms: Work/School Release Form(ED)
--- NOTE | 2022-03-15 14:08 | XRay Report ---
RIGHT HIP 2 VIEWS INDICATION: right hip pain after fall. COMPARISON: None. IMPRESSION: No acute osseous or soft tissue abnormality. No significant DJD. Signer Name: Haile Ma Jr, MD Signed: 03/15/2022 2:04 PM Workstation Name: [id number]
== END 2022-03-15 15:24 | disposition home or self-care (01) ==
LOC: ED 11:54
DX: M25.551 Pain in right hip (principal); F31.9 Bipolar disorder, unspecified; F20.9 Schizophrenia, unspecified
CPT/HCPCS: 99284

== ENCOUNTER 2022-03-17 15:58 | Emergency (ER) | payer MEDICARE ==
[2022-03-17] MEDS ORDERED: ACETAMINOPHEN 325 MG TAB PO ONE (17:25)
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
[2022-03-17 18:48] LABS: Basophils # (Auto) 0.1 K/mm3 (0.0-0.1); Basophils % (Auto) 0.8 % (0.0-1.8); Eosinophils # (Auto) 0.2 K/mm3 (0.0-0.4); Eosinophils % (Auto) 1.5 % (0.0-4.3); Hematocrit 31.3 % (30.3-42.9); Hemoglobin 10.4 gm/dl (10.1-14.3); Lymphocytes # (Auto) 1.7 K/mm3 (1.2-5.4); Lymphocytes % (Auto) 16.7 % (13.4-35.0); Mean Corpuscular HGB Conc 33 % (30-34); Mean Corpuscular Volume 80 fl (79-97); Monocytes # (Auto) 0.7 K/mm3 (0.0-0.8); Platelet Count 284 K/mm3 (140-440); Red Blood Count 3.89 M/mm3 (3.65-5.03); Red Cell Distribution Width 16.4 % (13.2-15.2)
[2022-03-17 19:04] LABS: Alanine Aminotransferase 10 units/L (7-56); Albumin 4.5 g/dL (3.9-5); Blood Urea Nitrogen 12 mg/dL (7-17); Calcium 9.5 mg/dL (8.4-10.2); Hemolysis Index 3
[2022-03-17 19:09] LABS: BUN/Creatinine Ratio 20
[2022-03-17 19:58] LABS: Bilirubin,Urine NEG (Negative); Blood,Urine NEG (Negative); Color,Urine Yellow (Yellow); Mucus,Urine 1+ /HPF; Protein,Urine <15 mg/dL mg/dL (Negative); Urobilinogen,Urine < 2.0 mg/dL (<2.0)
[2022-03-17 20:08] LABS: Amphetamine Screen,Urine Negative; Benzodiazepines Screen,Urine Negative; Cannabinoid Screen,Urine Negative; Cocaine Screen,Urine Negative; Methadone Screen,Urine Negative; Opiate Screen,Urine Negative
[2022-03-17] MEDS ORDERED: IBUPROFEN 800 MG TAB PO ONE (20:33)
[2022-03-17 21:23] VITALS: BP 124/81
== END 2022-03-17 21:59 | disposition home or self-care (01) ==
LOC: ED 15:58
DX: N76.0 Acute vaginitis (principal); B96.89 Other specified bacterial agents as the cause of diseases classified elsewhere; M54.50 Low back pain, unspecified; F20.9 Schizophrenia, unspecified; R56.9 Unspecified convulsions; Z79.899 Other long term (current) drug therapy
CPT/HCPCS: 36415; 80053; 80307; 81001; 84703; 85025; 87210; 87591; 99284

== ENCOUNTER 2022-03-28 09:00 | Emergency (ER) | payer MEDICARE ==
[2022-03-28 12:59] LABS: Basophils # (Auto) 0.1 K/mm3 (0.0-0.1); Basophils % (Auto) 0.7 % (0.0-1.8); Eosinophils # (Auto) 0.1 K/mm3 (0.0-0.4); Eosinophils % (Auto) 1.1 % (0.0-4.3); Hematocrit 33.3 % (30.3-42.9); Hemoglobin 10.5 gm/dl (10.1-14.3); Lymphocytes % (Auto) 24.4 % (13.4-35.0); Mean Corpuscular HGB Conc 32 % (30-34); Mean Corpuscular Volume 81 fl (79-97); Monocytes # (Auto) 0.5 K/mm3 (0.0-0.8); Monocytes % (Auto) 6.2 % (0.0-7.3); Platelet Count 138 K/mm3 (140-440)
[2022-03-28 13:16] LABS: Alanine Aminotransferase 8 units/L (7-56); Albumin 4.5 g/dL (3.9-5); Blood Urea Nitrogen 14 mg/dL (7-17); Calcium 8.8 mg/dL (8.4-10.2); Hemolysis Index 3
[2022-03-28 13:17] LABS: BUN/Creatinine Ratio 23
[2022-03-28 14:09] LABS: HCG Qualitative,Urine Negative (Negative)
--- NOTE | 2022-03-28 14:35 | XRay Report ---
CHEST 2 VIEWS INDICATION / CLINICAL INFORMATION: Cough. COMPARISON: None available. FINDINGS: SUPPORT DEVICES: None. HEART / MEDIASTINUM: The heart size and pulmonary vasculature are normal. LUNGS / PLEURA: No significant pulmonary or pleural abnormality. No pneumothorax. ADDITIONAL FINDINGS: No significant additional findings. IMPRESSION: No acute findings. Signer Name: Cruz Aguilera MD Signed: 03/28/2022 2:30 PM Workstation Name: [id number]
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
[2022-03-28 16:35] VITALS: BP 122/81
== END 2022-03-28 16:34 | disposition home or self-care (01) ==
LOC: ED 09:00
DX: J45.901 Unspecified asthma with (acute) exacerbation (principal); F31.9 Bipolar disorder, unspecified
CPT/HCPCS: 36415; 71046; 80053; 81025; 85025; 99284

== ENCOUNTER 2022-05-11 13:53 | Emergency (ER) | payer MEDICARE ==
[2022-05-11] MEDS ORDERED: LIDOCAINE-MPF (1%) 10 MG/1 ML VIAL 5 ML INFILTRATI ONE ×2 (17:24→20:00)
[2022-05-11 17:25] LABS: Bilirubin,Urine NEG (Negative); Blood,Urine NEG (Negative); Color,Urine Yellow (Yellow); Protein,Urine <15 mg/dL mg/dL (Negative)
[2022-05-11] MEDS ORDERED: predniSONE 20 MG TAB PO ONE ×2 (17:25→20:00)
[2022-05-11 17:26] LABS: HCG Qualitative,Urine Negative (Negative)
[2022-05-11 17:38] LABS: Amorphous Crystals,Urine 1+; Mucus,Urine 1+ /HPF
--- NOTE | 2022-05-11 17:59 | Emergency Department Report ---
ED Female HPI - General Chief complaint: Urogenital-Female Stated complaint: VAGINAL DISCHARGE/BURNING/ITCHIGN Time Seen by Provider: 05/11/22 16:10 Source: EMS Mode of arrival: Ambulatory Limitations: No Limitations - History of Present Illness Initial comments: 36-year-old black female with a past medical history of bipolar and schizophrenia presents to the emergency department for evaluation of few day history of vaginal discharge and burning with urination. She states that a few months ago she was treated for STDs but since then has had some unprotected sex. She denies fever, abdominal pain, nausea, vomiting, and vaginal bleeding. She also complains of nasal congestion and sore throat. MD Complaint: vaginal discharge, dysuria, possible STD -: Gradual, days(s) (1-2) Severity scale (0 -10): 0 Are you Now?: No Associated Symptoms: vaginal discharge, headaches, dysuria. denies: vaginal bleeding, abdominal pain, nausea/vomiting, fever/chills, loss of appetite, hematuria, rash, seizure, shortness of breath, syncope, weakness - Related Data Sexually active: Yes Home Medications Medication Instructions Recorded Confirmed Last Taken Albuterol Mdi (or & Nicu Only) 2 puff IH QID PRN 04/26/21 03/15/22 Unknown [ProAir HFA Inhaler] Previous Rx's Medication Instructions Recorded Last Taken Type Famotidine [Pepcid] 40 mg PO QHS #30 tablet 07/15/21 Unknown Rx Ondansetron [Zofran Odt] 4 mg PO Q8HR PRN #12 tab.rapdis 07/15/21 Unknown Rx Meloxicam [Mobic] 15 mg PO BID 15 Days #30 tab 03/15/22 Unknown Rx Ibuprofen [Motrin] 600 mg PO Q8H PRN #20 tablet 03/17/22 Unknown Rx metroNIDAZOLE [Flagyl] 500 mg PO Q12HR #14 tab 03/17/22 Unknown Rx Montelukast [Singulair] 10 mg PO QPM #14 tablet 03/28/22 Unknown Rx predniSONE [Deltasone] 50 mg PO QDAY #5 tab 03/28/22 Unknown Rx DOXYCYCLINE Hyclate [Vibramycin] 100 mg PO BID 7 Days #14 capsule 05/11/22 Unknown Rx methylPREDNISolone [Medrol 4MG 4 mg PO DAILY #1 pack 05/11/22 Unknown Rx DOSEPAK (21 tabs)] Allergies Allergy/AdvReac Type Severity Reaction Status Date / Time No Known Allergies Allergy Verified 05/11/22 14:05 ED Review of Systems ROS: Stated complaint: VAGINAL DISCHARGE/BURNING/ITCHIGN Other details as noted in HPI Comment: All other systems reviewed and negative Constitutional: denies: chills, fever, weakness Eyes: denies: eye pain, vision change ENT: throat pain, congestion Respiratory: cough. denies: orthopnea, shortness of breath, SOB with exertion, SOB at rest, stridor, wheezing Cardiovascular: denies: chest pain, palpitations, dyspnea on exertion, orthopnea, edema, syncope, paroxysmal nocturnal dyspnea Gastrointestinal: denies: abdominal pain, nausea, vomiting, diarrhea, hematemesis, melena, hematochezia Genitourinary: dysuria, discharge. denies: urgency, frequency, hematuria Musculoskeletal: denies: back pain Skin: denies: rash, lesions Neurological: denies: headache, weakness ED Past Medical Hx - Past Medical History Hx Seizures: Yes Hx Psychiatric Treatment: Yes (bipolar scizophrenia) - Surgical History Additional Surgical History: "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 - Social History Smoking Status: Never Smoker Substance Use Type: None - Medications Home Medications: Home Medications Medication Instructions Recorded Confirmed Last Taken Type Albuterol Mdi (or & Nicu Only) 2 puff IH QID PRN 04/26/21 03/15/22 Unknown History [ProAir HFA Inhaler] Famotidine [Pepcid] 40 mg PO QHS #30 tablet 07/15/21 03/15/22 Unknown Rx Ondansetron [Zofran Odt] 4 mg PO Q8HR PRN #12 tab.rapdis 07/15/21 03/15/22 Unknown Rx Meloxicam [Mobic] 15 mg PO BID 15 Days #30 tab 03/15/22 Unknown Rx Ibuprofen [Motrin] 600 mg PO Q8H PRN #20 tablet 03/17/22 Unknown Rx metroNIDAZOLE [Flagyl] 500 mg PO Q12HR #14 tab 03/17/22 Unknown Rx Montelukast [Singulair] 10 mg PO QPM #14 tablet 03/28/22 Unknown Rx predniSONE [Deltasone] 50 mg PO QDAY #5 tab 03/28/22 Unknown Rx DOXYCYCLINE Hyclate [Vibramycin] 100 mg PO BID 7 Days #14 capsule 05/11/22 Unknown Rx methylPREDNISolone [Medrol 4MG 4 mg PO DAILY #1 pack 05/11/22 Unknown Rx DOSEPAK (21 tabs)] ED Physical Exam - General Limitations: No Limitations General appearance: alert, in no apparent distress - Head Head exam: Present: atraumatic, normocephalic - Eye Eye exam: Present: normal appearance. Absent: conjunctival injection, periorbital swelling, periorbital tenderness - ENT ENT exam: Present: TM's normal bilaterally. Absent: normal exam (Bilateral nasal mucosal edema with turbinate swelling. Tenderness to bilateral frontal sinus areas), normal orophraynx (Erythema noted to posterior oropharynx) - Expanded ENT Exam Expanded Throat exam: Negative: normal inspection, tonsillar erythema, tonsillomegaly, tonsillar exudate, R peritonsillar mass, L peritonsillar mass - Neck Neck exam: Present: normal inspection, tenderness, thyromegaly. Absent: lymphadenopathy - Respiratory Respiratory exam: Present: normal lung sounds bilaterally. Absent: respiratory distress, wheezes, rales, rhonchi, stridor, chest wall tenderness - Cardiovascular Cardiovascular Exam: Present: regular rate, normal heart sounds - GI/Abdominal GI/Abdominal exam: Present: soft, normal bowel sounds. Absent: distended, tenderness, guarding, rebound, rigid - External exam: Present: normal external exam. Absent: erythema, swelling, lesions Speculum exam: Present: vaginal discharge, cervical discharge. Absent: erythema, vaginal bleeding, foreign body, laceration Bi-manual exam: Absent: cervical motion tendernes, adnexal tenderness, uterine tenderness - Extremities Exam Extremities exam: Present: normal inspection, normal capillary refill. Absent: pedal edema, joint swelling, calf tenderness - Back Exam Back exam: Present: normal inspection. Absent: CVA tenderness (R), CVA tenderness (L) - Neurological Exam Neurological exam: Present: alert, oriented X3, normal gait - Psychiatric Psychiatric exam: Present: normal affect, normal mood - Skin Skin exam: Present: warm, dry, intact, normal color ED Course Vital Signs 05/11/22 05/11/22 14:03 21:28 Temperature 97.6 F Pulse Rate 82 86 Respiratory 16 12 Rate Blood Pressure 132/78 129/79 [Left] O2 Sat by Pulse 99 100 Oximetry ED Medical Decision Making - Medical Decision Making 36-year-old black female with a past medical history of bipolar and schizophrenia presents to the emergency department for evaluation of few day history of vaginal discharge and burning with urination. She states that a few months ago she was treated for STDs but since then has had some unprotected sex. She denies fever, abdominal pain, nausea, vomiting, and vaginal bleeding. She also complains of nasal congestion and sore throat. Physical exam consistent with sinusitis otherwise unremarkable. Wet prep negative for trichomonas, BV, and yeast. Urine negative for UTI. Patient treated empirically for GC chlamydia with Rocephin 500 mg IM and discharged home with a prescription for doxycycline 100 mg p.o. twice a day for 7 days. She was given Medrol Dosepak and advised to take [id number] sinus medication for sinusitis. She is advised to take medications as prescribed and follow-up with primary care provider if no improvement or worsening symptoms. She verbalizes understanding of and agreement with plan of care. Critical care attestation.: If time is entered above; I have spent that time in minutes in the direct care of this critically ill patient, excluding procedure time. ED Disposition Clinical Impression: Vaginal discharge Sinusitis Qualifiers: Sinusitis location: frontal Chronicity: acute Recurrence: non-recurrent Qualified Code(s): J01.10 - Acute frontal sinusitis, unspecified Disposition: 01 HOME / SELF CARE / HOMELESS Is pt being admited?: No Does the pt Need Aspirin: No Condition: Stable Instructions: Sinusitis, Adult, [id number] Additional Instructions: Take medications as prescribed. Follow-up with your primary care provider if no improvement or worsening symptoms. Return to the emergency department as needed. Prescriptions: methylPREDNISolone [Medrol 4MG DOSEPAK (21 tabs)] 4 mg PO DAILY #1 pack DOXYCYCLINE Hyclate [Vibramycin] 100 mg PO BID 7 Days #14 capsule Referrals: ANNETTE MCKEON MD [Staff Physician] - 3-5 Days [facility] [Outside] - 3-5 Days [facility] [Outside] - 3-5 Days Time of Disposition: 17:58
[2022-05-11 21:29] VITALS: BP 129/79
== END 2022-05-11 21:29 | disposition home or self-care (01) ==
LOC: ED 13:53
DX: N89.8 Other specified noninflammatory disorders of vagina (principal); J32.9 Chronic sinusitis, unspecified; R56.9 Unspecified convulsions; F31.9 Bipolar disorder, unspecified; Z79.899 Other long term (current) drug therapy
CPT/HCPCS: 81001; 81025; 87210; 87591; 96372; 99284; J0696; J3490